=== PATIENT | female | born 1940 | race Caucasian/White ===

== ENCOUNTER → 2020-05-02 08:34 | Outpatient (BNVA) | payer MEDICARE, SELFPAY | PROVIDERS: Visit Provider Nurse Practitioner Family | DX: E03.9 Hypothyroidism, unspecified (principal); I10 Essential (primary) hypertension; E78.2 Mixed hyperlipidemia; E55.9 Vitamin D deficiency, unspecified; Z79.899 Other long term (current) drug therapy | CPT/HCPCS: 36415; 80053; 80061; 81003; 82306; 83036; 84443; 85025 ==

== ENCOUNTER 2021-06-01 09:28 | Outpatient (CLI) | payer MEDICARE, OTHER, SELFPAY ==
--- NOTE | 2021-06-01 | CT_ITS ---
WS: [id number] CT RIGHT HIP, NONCONTRAST. HISTORY: POSSIBLE FX SEEN ON XRAY Technique: All CT scans at [facility] use at least one of these dose optimization techniques: automated exposure control; mA and/or kV adjustment per patient size (includes targeted exams where dose is matched to clinical indication); or iterative reconstruction. DLP: 1495.21 mGy.cm COMPARISON: Radiograph RIGHT hip same day. Severe narrowing of the hip joint. No fracture is identified. Changes on the recent radiograph corres pond to osteophytic ridging around the femoral head and neck. No impacted healing or subacute fractur e. Degenerative air within the RIGHT SI joint. Atrophy of the muscle surrounding the RIGHT hip. No he matoma. CT/CT hip RT wo con* [id number] IMPRESSION: 1. No RIGHT hip fracture identified. 2. Severe degenerative joint disease at the RIGHT hip.
--- NOTE | 2021-06-01 09:51 | XR_ITS ---
WS: [id number] Exam: XR lumbar spine 2-3V* [id number] Date/Time of Exam: 06/01/2021 10:11 AM Reason For Exam: LOW BACK PAIN No acute fracture or dislocation. There is spondylosis. Degenerative vacuum disks are noted at the L1 -2, L2-3 and L3-4. Levoscoliosis noted. Facet DJD at all levels. Exaggerated lumbosacral angle. XR/XR lumbar spine 2-3V* [id number] IMPRESSION: 1. No fracture or dislocation. 2. Moderately advanced degenerative changes and levoscoliosis.
--- NOTE | 2021-06-01 09:51 | XR_ITS ---
WS: [id number] Exam: XR knee RT 1-2V [id number] Date/Time of Exam: 06/01/2021 10:11 AM Reason For Exam: RIGHT KNEE PAIN No acute fracture or dislocation. Mild degenerative change of the lateral joint compartment. Articula r cartilage calcification in the medial lateral joint compartments. There may be loose joint bodies i n the lateral compartment. No joint effusion. XR/XR knee RT 1-2V [id number] IMPRESSION: 1. Mild degenerative change and chondrocalcinosis. There may be loose joint bod ies present. 2. No fracture or joint effusion.
--- NOTE | 2021-06-01 09:54 | XR_ITS ---
WS: [id number] Exam: XR hip RT 2-3V wo/w pel* [id number] Date/Time of Exam: 06/01/2021 10:11 AM Reason For Exam: RIGHT HIP PAIN No acute fracture or dislocation. Advanced degenerative change with [id number] articulation. Subcor tical cyst formation in the femoral head. Linear soft tissue calcifications along the proximal femur. XR/XR hip RT 2-3V wo/w pel* [id number] IMPRESSION: 1. Advanced degenerative changes with [id number] articulation. 2. No fracture or dislocation.
--- NOTE | 2021-06-01 09:54 | XR_ITS ---
WS: [id number] Exam: XR forearm RT 2V [id number] Date/Time of Exam: 06/01/2021 10:11 AM Reason For Exam: RIGHT ARM PAIN, FALL Findings: There are no fractures, soft tissue swelling, or calcifications of the forearm. There is no irregula rity of the bony architecture. The bony elements lie in good position. XR/XR forearm RT 2V [id number] IMPRESSION: Negative forearm.
== END 2021-06-01 09:29 | disposition home or self-care (01) ==
LOC: RAD 09:43
PROVIDERS: PCP Nurse Practitioner Family; Visit Provider Nurse Practitioner Family
DX: M54.5 Low back pain (principal); W19.XXXA Unspecified fall, initial encounter; M11.261 Other chondrocalcinosis, right knee
CPT/HCPCS: 72100; 73090; 73502; 73560; 73700

== ENCOUNTER 2021-06-27 09:17 | Emergency (ER) | payer MEDICARE, OTHER, SELFPAY ==
[2021-06-27 09:25] VITALS: BP 151/87; PULSE 99; RESP 18; TEMP 36.6; O2SAT 97; BMI 30.4
--- NOTE | 2021-06-27 09:38 | ED_ITS ---
HPI - Extremity Problem General: Chief complaint: Extremity Problem,Nontraumatic Stated complaint: BLE PAIN/SWELLING:FELL 1 MO AGO,INC URINATION Time Seen by Provider: 06/27/21 09:20 History of Present Illness: HPI Narrative: 81-year-old female comes in [facility] of right hip and leg pain. She said increasing pain and edema of the right lower leg extending into the thigh. She has a history of polio and has really no significant flexion of the left leg she is [place] rate and transfer on her right leg but since the fall in mid-May she is not able to do so. She fell around the she had a hand laceration repaired at [place] at that time and then on the was seen at her primary care doctor's office had plain films and a CT of the right hip done all of which were read as negative. She is continued to have problems discomfort. MD Complaint: extremity pain Onset (ago): day(s) Pain Consistency: intermittent Location: right and lower extremity Quality: burning Radiation: distal Relieving factors: rest Exacerbating factors: weight bearing, walking and exertion Associated symptoms: Reports myalgias; Deny arthralgias, chest pain, fever(s), rash or short of breath Review of Systems Const: Denies: fever(s) ENMT: Denies: throat pain, ear or mastoid pain, nasal discharge or nasal congestion Card: Denies: chest pain Resp: Denies: dyspnea, productive cough or non-productive cough GI: Denies: abdominal pain, nausea, vomiting, hematemesis, coffee ground emesis, diarrhea, constipation, bloating, hematochezia or melena : Denies: flank pain, difficulty voiding, dysuria, urinary frequency or urinary urgency Skin/Breast: Denies: rash PFSH ED PFSH: Medical History Atrial fibrillation COPD (chronic obstructive pulmonary disease) DDD (degenerative disc disease) Hypothyroid Post-polio syndrome SVT (supraventricular tachycardia) Vitamin D deficiency Social History Smoking and tobacco status: never smoked Second hand smoke exposure: No Smoking risk assessment/counseling performed?: No Alcohol intake: never Desire information about alcohol rehabilitation?: No Counseling given: No Desire information about substance/drug rehabilitation?: No Counseling given: No Physical Exam Const: COMMON NORMALS: no acute distress GENERAL APPEARANCE: cooperative and comfortable ORIENTATION/CONSCIOUSNESS: Yes awake, Yes oriented to person, Yes oriented to place and Yes oriented to time HENMT: COMMON NORMALS: normocephalic, atraumatic and hearing grossly normal bilaterally HEAD & SCALP: normocephalic and atraumatic Neck/C-Spine: COMMON NORMALS: no JVD Resp: COMMON NORMALS: normal respiratory effort, No retractions, No use of accessory muscles and clear to auscultation bilaterally AUSCULTATION: clear to auscultation bilaterally Cardio: COMMON NORMALS: no JVD, regular rate, regular rhythm and No murmurs present (Cardio) RATE: regular rate RHYTHM: regular rhythm GI: COMMON NORMALS: Soft to palpation and No hepatosplenomegaly present AUSCULTATION: Yes normoactive bowel sounds PALPATION: Yes Soft to palpation, No Tenderness to palpation present (GI), No Guarding due to palpation present (GI) and Yes No hepatosplenomegaly present Extremity: COMMON NORMALS: normal to inspection, capillary refill normal, no clubbing, cyanosis or edema, no calf tenderness and no pedal edema Neuro: SENSORIUM/ORIENTATION: Yes oriented to person, Yes oriented to place and Yes oriented to time Skin: COMMON NORMALS: no rashes or lesions noted GENERAL SKIN EXAM: no rashes or lesions noted Course Vital Signs: Vital signs: Vital Signs Temperature 97.9 F 06/27/21 09:25 Pulse Rate 80 06/27/21 12:26 Respiratory Rate 18 06/27/21 09:25 Blood Pressure 166/72 06/27/21 12:26 Pulse Oximetry 98 06/27/21 12:26 MDM - Extremity (Nontraumatic) MDM Narrative: Medical decision making narrative: Reviewed CT and labs with the patient. Patient has lumbar stenosis on the CT. She had discharge sometime back after I discussed with her she told me she had an appointment with a back surgeon next week. She not previously had any imaging. Based on the results of CT I recommended she get an MRI prior to being seen by the back surgeon. She did rather not drive [place] overnight get her set up for a MRI here and then see if we can get her in to see Dr. Brewer return if she has further problems with pain medications and steroids given until MRI completed. Lab Data: Labs: Lab Results 06/27/21 06/27/21 06/27/21 10:04 10:04 12:45 WBC 9.0 10^3/uL 10^3/ uL (4.0-10.0) RBC 4.65 10^6/uL 10^6 /uL (4.1-5.3) Hgb 14.6 g/dL g/dL (11.5-15.3) Hct 43.8 % % (37.0-47.0) MCV 94.2 fl fl (81-99) MCH 31.4 pg pg (28.0-34.0) MCHC 33.3 g/dL g/dL (30.0-36.0) RDW 14.0 % % (12.1-15.1) Plt Count 295 10^3/cmm 10^3 /cmm (130-400) MPV 10.1 fL fL (7.4-10.4) Neut % (Auto) 67.1 % % Lymph % (Auto) 23.1 % % [place] % (Auto) 8.5 % % Eos % (Auto) 0.4 % % Baso % (Auto) 0.7 % % Neut # (Auto) 6.04 10^3/uL 10^3 /uL (1.8-7.7) Lymph # (Auto) 2.1 10^3/uL 10^3/ uL (0.8-4.8) [place] # (Auto) 0.8 10^3/uL 10^3/ uL (0.2-0.9) Eos # (Auto) 0.0 10^3/uL 10^3/ uL (0.0-0.8) Baso # (Auto) 0.1 10^3/uL 10^3/ uL (0.0-0.1) Nucleated RBC % (a uto) 0 % % Nucleated RBCs # 0.0 /100WBC /100W BC Sodium 138 mmol/L mmol/L (136-145) Potassium 4.0 mmol/L mmol/L (3.5-5.1) Chloride 105 mmol/L mmol/L (98-107) Carbon Dioxide 21 mmol/L L mmol/ L (22-29) Anion Gap 16.0 (5-19) BUN 20 mg/dL mg/dL (8-23) Creatinine 0.7 mg/dL mg/dL (0.5-0.9) GFR Calculation Not Reportable Glucose 131 mg/dL H mg/dL (65-115) Calculated Osmolal ity 290 mOsm/kg mOsm/ kg (285-295) Calcium 9.4 mg/dL mg/dL (8.5-10.5) Urine Color Yellow (Yellow) Urine Appearance Sl hazy (CLEAR) Urine pH 5 (5-7) Ur Specific Gravit y 1.020 (1.005-1.030) Urine Protein Neg (Negative) Urine Glucose (UA) Norm (Normal) Urine Ketones Negative (Negative) Urine Blood Neg (Negative) Urine Nitrate Negative (Negative) Urine Bilirubin Neg (Negative) Urine Urobilinogen Norm mg/dL mg/dL (Negative) Ur Leukocyte [place] ase Negative (Negative) Urine RBC 0-4 /hpf H /hpf (0-2) Urine WBC 0-4 /hpf H /hpf (0-5) Ur Squamous Epith Cells 5-10 /hpf H /hpf (0-5) Amorphous Sediment Not Reportable Urine Bacteria 1+ /hpf H /hpf (NONE) Hyaline Casts 0-4 /lpf H /lpf Urine Mucus 1+ /hpf /hpf Discharge Plan Discharge Patient Disposition: Home Clinical Impression: Lumbar stenosis with neurogenic claudication Condition: Stable Prescriptions: New hydrocodone-acetaminophen 5-325 mg tablet 1 tab PO Q6H PRN (Reason: pain) Qty: 15 RF: 0 Medrol (Theo) 4 mg tablets,dose pack See Rx Instructions .ROUTE .COMPLEX Qty: 21 RF: 0 No Action amiodarone 200 mg tablet 200 mg PO DAILY RF: 0 alprazolam 0.25 mg tablet 0.25 mg PO BID PRN (Reason: anxiety) 15 Days Qty: 30 RF: 0 amlodipine [Norvasc] 5 mg tablet 10 mg PO DAILY 90 Days Qty: 120 RF: 2 cholecalciferol (vitamin D3) 1,250 mcg (50,000 unit) capsule 50,000 unit PO .WEEKLY Qty: 4 RF: 2 levothyroxine 50 mcg tablet 50 mcg PO DAILY Qty: 30 RF: 2 apixaban 5 mg tablet 5 mg PO BID 90 Days Qty: 180 RF: 0 Discharge Orders: Discharge ED (Routine); Ordered 06/27/21 Ordered By: Kimani Bueno Referrals: Ernestina Nicholson NP [Primary Care Provider] - Discharge Diet: Usual diet Discharge Activity: Resume usual activity Patient Instructions: Opioid Safety Activity Restrictions/Additional Instructions: Follow-up with your primary care doctor within the next week for evaluation of your back pain. You may require advanced imaging such as an MRI. Coding Level of Care Code ED Service Technician for Andriy Raymundo
--- NOTE | 2021-06-27 09:45 | USR_ITS ---
PROCEDURE INFORMATION: Exam: US Duplex Lower Extremity Veins, Bilateral Exam date and time: 06/27/2021 9:45 AM Age: 81 years old Clinical indication: Edema, localized; Lower extremity, bilateral; Additional info: Pain swelling lower extremities TECHNIQUE: Imaging protocol: Real-time duplex ultrasound of the extremities with 2-D martin scale, color Doppler flow and spectral waveform analysis with image documentation. Complete exam focused on the bilateral lower extremity veins. COMPARISON: CT hip RT wo con* [id number] 06/01/2021 11:55 AM FINDINGS: Right deep veins: Unremarkable. The common femoral, femoral, proximal profunda femoral and popliteal veins are patent without thrombus. Normal Doppler waveforms. Normal compressibility and/or augmentation response. Right superficial veins: Saphenofemoral junction is patent without thrombus. Left deep veins: Unremarkable. The common femoral, femoral, proximal profunda femoral and popliteal veins are patent without thrombus. Normal Doppler waveforms. Normal compressibility and/or augmentation response. Left superficial veins: Saphenofemoral junction is patent without thrombus. Soft tissues: Unremarkable. US/CV venous duplex [facility] [id number] IMPRESSION: No evidence of deep vein thrombosis. Radiation Dose CTDIVOL = (mGy): DLP = (mGy-cm)
--- NOTE | 2021-06-27 09:54 | CTR_ITS ---
PROCEDURE INFORMATION: Exam: CT Lumbar Spine Without Contrast Exam date and time: 06/27/2021 9:54 AM Age: 81 years old Clinical indication: Injury or trauma; Fall; Blunt trauma (contusions or hematomas); Additional info: R leg radicular pain TECHNIQUE: Imaging protocol: Computed tomography images of the lumbar spine without contrast. Radiation optimization: All CT scans at this facility use at least one of these dose optimization techniques: automated exposure control; mA and/or kV adjustment per patient size (includes targeted exams where dose is matched to clinical indication); or iterative reconstruction. COMPARISON: CR XR lumbar spine 2-3V* [id number] 06/01/2021 10:01 AM RADIATION DOSE METRICS: Total DLP (mGy-cm): 2190.14 FINDINGS: Vertebrae: Minimal lower thoracic dextroscoliosis and lumbar levoscoliosis. There are degenerative changes throughout the visualized spine including marginal osteophyte formations, endplate degenerative changes, and facet arthropathy. Multilevel vacuum disc phenomenon and disc space narrowing. L1-L2: No significant disc protrusion. No severe spinal canal stenosis. No significant neural foraminal narrowing. L2-L3: There is a disc bulge with a possible superimposed right paracentral protrusion without significant canal or neural foramina stenosis. L3-L4: Minimal disc bulge and posterior osteophytes. No significant canal or neural foramina stenosis. There is a slight grade 1 degenerative retrolisthesis of L3 on L4. L4-L5: There is a disc bulge with possible superimposed right lateral protrusion, ligamentum flavum hypertrophy and facet arthropathy which contributes to moderate to severe canal narrowing. There is moderate narrowing of the right neural foramen. L5-S1: No significant disc protrusion. No severe spinal canal stenosis. No significant neural foraminal narrowing. Soft tissues: Unremarkable. CT/CT lumbar spine wo con* [id number] IMPRESSION: Multilevel, multifactorial degenerative changes are present in the lumbar spine as described above. The changes are most severe at the L4-L5 level where a disc bulge with possible superimposed right lateral protrusion, ligamentum flavum hypertrophy, and facet arthropathy contribute to moderate to severe canal narrowing and moderate narrowing of the right neural foramen. Radiation Dose CTDIVOL = (mGy): DLP = 2190.14 (mGy-cm)
[2021-06-27 10:10] LABS: Basophils # 0.1 10^3/uL (0.0-0.1); Basophils % 0.7 %; Eosinophils % 0.4 %; Hematocrit 43.8 % (37.0-47.0); Hemoglobin 14.6 g/dL (11.5-15.3); Lymphocytes # 2.1 10^3/uL (0.8-4.8); Lymphocytes % 23.1 %; Mean Corpuscular HGB Conc 33.3 g/dL (30.0-36.0); Mean Corpuscular Hemoglobin 31.4 pg (28.0-34.0); Mean Corpuscular Volume 94.2 fl (81-99); Mean Platelet Volume 10.1 fL (7.4-10.4); Monocytes # 0.8 10^3/uL (0.2-0.9); Monocytes % 8.5 %; Neutrophils # 6.04 10^3/uL (1.8-7.7); Neutrophils % 67.1 %; Nucleated Red Blood Cells % 0 %; Platelet Count 295 10^3/cmm (130-400); Red Blood Count 4.65 10^6/uL (4.1-5.3)
[2021-06-27 10:44] LABS: Blood Urea Nitrogen 20 mg/dL (8-23); Calcium 9.4 mg/dL (8.5-10.5); Carbon Dioxide 21 mmol/L (22-29); Chloride 105 mmol/L (98-107); Creatinine Clr Calc Pharmacy 62.8258; Glucose 131 mg/dL (65-115); Osmolality Calculated 290 mOsm/kg (285-295); Sodium 138 mmol/L (136-145)
[2021-06-27] MEDS: orphenadrine 30 mg/mL Inj 2 mL 60 MG IVP (12:24)
[2021-06-27] MEDS: dexamethasone 10 mg/mL INJ IVP (12:24)
[2021-06-27 12:26] VITALS: BP 166/72; PULSE 80; O2SAT 98
[2021-06-27 12:56] LABS: Add Urine Microscopic? YES; Bilirubin Urine Neg (Negative); Blood Urine Neg (Negative); Glucose Urine UA Norm (Normal); Ketones Urine Negative (Negative); Leukocyte Esterase Urine Negative (Negative); Nitrate Urine Negative (Negative); Protein Urine Neg (Negative); Urine Appearance SL Hazy (CLEAR); Urine Color Yellow (Yellow); Urobilinogen Urine Norm (Negative); pH Urine 5 (5-7)
[2021-06-27 13:04] LABS: Bacteria Urine 1+ /hpf; Mucus Urine 1+ /hpf; RBC Urine 0-4 /hpf (0-2); WBC Urine 0-4 /hpf (0-5)
[2021-06-27 13:05] LABS: Add Urine Culture? No; Hyaline Casts Urine 0-4 /lpf
[2021-06-27] MEDS: HYDROcodone-acetaminophen 5-325 mg Tablet 1 TAB PO (13:28)
--- NOTE | 2021-07-01 14:01 | DCPLANNER ---
lunch counter manager had message to schedule a follow up appointment for patient with ortho and an outpatient MRI. lunch counter manager faxed signed MRI order to centralized scheduling. After the MRI is scheduled, manager of case management will call the ortho clinic, and make referral to the ortho.
--- NOTE | 2021-07-15 13:48 | DCPLANNER ---
Patient has an outpatient MRI scheduled for Wednesday, July 21, 2021 at 1:00, centralized scheduling will call patient with appointment information. Patient has an appointment scheduled for Wednesday, August 04, 2021 at 1:[address] Brewer. Clinic will call patient with appointment information.
--- NOTE | 2021-08-28 09:11 | DCPLANNER ---
Patient had an outpatient MRI scheduled for 07.21.21 - patient did attend appointment. Patient also had an appointment scheduled with ortho - appt was cancelled
== END 2021-06-27 13:36 | disposition home or self-care (01) ==
PROVIDERS: Emergency Provider Family Medicine; PCP Nurse Practitioner Family
DX: M48.062 Spinal stenosis, lumbar region with neurogenic claudication (principal); J44.9 Chronic obstructive pulmonary disease, unspecified; R60.0 Localized edema; M79.604 Pain in right leg
CPT/HCPCS: 72131; 80048; 81001; 85025; 93970; 96374; 96375; 99283; J1100; J2360

== ENCOUNTER 2022-09-06 10:51 | Emergency (ER) | payer MEDICARE, OTHER, SELFPAY ==
--- NOTE | 2022-09-06 11:05 | XRR_ITS ---
PROCEDURE INFORMATION: Exam: XR Chest Exam date and time: 09/06/2022 11:09 AM Age: 82 years old Clinical indication: Cough TECHNIQUE: Imaging protocol: Radiologic exam of the chest. Views: 1 view. COMPARISON: No relevant prior studies available. FINDINGS: Lungs: Unremarkable. No consolidation. Pleural spaces: Unremarkable. No pleural effusion. No pneumothorax. Heart/Mediastinum: Unremarkable. No cardiomegaly. Bones/joints: The left AC joint is widened measuring 28 mm. There is foreshortening of the left clavicle. A metallic plate is seen in the humeral head. Remodeling is present in the glenoid. The right shoulder shows osteoarthritis and narrowing of the acromial humeral space. There is a loop recorder in place in the left chest XR/XR chest 1V portable [id number] IMPRESSION: 1. No acute findings. 2. Postsurgical findings is seen in the left shoulder. 3. Osteoarthritis right shoulder 4. Loop recorder left chest
--- NOTE | 2022-09-06 11:06 | W.ED.URI ---
HPI - URI/Sore Throat General: Chief Complaint: Weakness Stated Complaint: Flu Symptoms Time Seen by Provider: 09/06/22 11:01 History of Present Illness: 82-year-old female presents with generalized flulike symptoms. She reports everyone in the house has had similar symptoms. Been gone for about 3 days. She has a mild cough that is improved over the last day or 2. Some generalized body aches, chills, weakness. Patient has a history of polio when she is 10 years old and has limited mobility and uses a motorized wheelchair due to weakness in her bilateral legs. Patient comes in today because she just wants to be checked out. Associated symptoms: Reports chills and diarrhea; Deny abdominal pain, chest pain, ear or mastoid pain, nausea or vomiting Review of Systems Const: Reports: chills, body aches, fatigue and malaise Eyes: Denies: change in vision or eye discomfort ENMT: Denies: throat pain or ear or mastoid pain Card: Denies: chest pain or palpitations Resp: Reports: non-productive cough; Denies: dyspnea GI: Reports: diarrhea; Denies: abdominal pain, nausea or vomiting : Denies: difficulty voiding or dysuria Musc: Reports: other (Please see HPI) Skin/Breast: Denies: rash Neuro: Reports: other (Please see HPI) PFSH ED PFSH: Medical History Atrial fibrillation COPD (chronic obstructive pulmonary disease) DDD (degenerative disc disease) Hypothyroid Post-polio syndrome SVT (supraventricular tachycardia) Vitamin D deficiency Social History Smoking and tobacco status: never smoked Second hand smoke exposure: No Smoking risk assessment/counseling performed?: No Alcohol intake: never Desire information about alcohol rehabilitation?: No Counseling given: No Desire information about substance/drug rehabilitation?: No Counseling given: No Physical Exam Const: COMMON NORMALS: no acute distress, patient oriented x3 and alert ORIENTATION/CONSCIOUSNESS: Yes oriented to person, Yes oriented to place and Yes oriented to time HENMT: MOUTH: moist mucous membranes abnormal (Mild dry) Eye: COMMON NORMALS: Equal, round and reactive pupils present and EOMs intact bilaterally PUPIL: Yes Equal, round and reactive pupils present Neck/C-Spine: COMMON NORMALS: full ROM and supple Resp: COMMON NORMALS: normal respiratory effort, No retractions, No use of accessory muscles and clear to auscultation bilaterally AUSCULTATION: clear to auscultation bilaterally Cardio: COMMON NORMALS: regular rate and regular rhythm RATE: regular rate RHYTHM: regular rhythm GI: COMMON NORMALS: Soft to palpation and non-tender PALPATION: Yes Soft to palpation Neuro: COMMON NORMALS: patient oriented x3 SENSORIUM/ORIENTATION: Yes alert, Yes oriented to person, Yes oriented to place and Yes oriented to time SPEECH: speech normal Psych: COMMON NORMALS: Normal thought process present, cooperative and speech normal SPEECH: Yes normal speech THOUGHT PROCESS: Normal thought process present Skin: COMMON NORMALS: no rashes or lesions noted GENERAL SKIN EXAM: no rashes or lesions noted Course Vital Signs: Vital signs: Vital Signs Temperature 101.0 F H 09/06/22 11:07 Pulse Rate 73 09/06/22 15:41 Respiratory Rate 16 09/06/22 15:41 Blood Pressure 133/62 09/06/22 15:41 Pulse Oximetry 94 09/06/22 15:41 Oxygen Delivery Me thod 09/06/22 14:25 MDM - URI/Sore Throat Medical Decision Making Reviewed patient's x-rays and labs with her. She is positive for influenza. Otherwise no significant acute findings on her labs or chest x-ray. She is feeling better following IV fluids. Even though she is near the window for Tamiflu because of her history of polio and other chronic medical conditions I will prescribe her Tamiflu. I also recommend she try elderberry and drink plenty of fluids. She denies any nausea so I will not prescribe her any Zofran at this time. Patient was requesting a prescription for Joey lift however I recommended she follow-up with her primary care provider as that would be the provider that can order that for her. She is stable and discharged home Lab Data 09/06/22 11:45 09/06/22 11:45 Radiology Impressions Chest X-Ray 09/06/22 11:05 IMPRESSION: 1. No acute findings. 2. Postsurgical findings is seen in the left shoulder. 3. Osteoarthritis right shoulder 4. Loop recorder left chest Laboratory Results WBC 7.8 10^3/uL (4.0-10.0) 09/06/22 11:45 RBC 4.58 10^6/uL (4.1-5.3) 09/06/22 11:45 Hgb 14.3 g/dL (11.5-15.3) 09/06/22 11:45 Hct 43.0 % (37.0-47.0) 09/06/22 11:45 MCV 93.9 fl (81-99) 09/06/22 11:45 MCH 31.2 pg (28.0-34.0) 09/06/22 11:45 MCHC 33.3 g/dL (30.0-36.0) 09/06/22 11:45 RDW 14.0 % (12.1-15.1) 09/06/22 11:45 Plt Count 219 10^3/cmm (130-400) 09/06/22 11:45 MPV 10.3 fL (7.4-10.4) 09/06/22 11:45 Neut % (Auto) 85.6 % 09/06/22 11:45 Lymph % (Auto) 4.0 % 09/06/22 11:45 [place] % (Auto) 9.6 % 09/06/22 11:45 Eos % (Auto) 0.0 % 09/06/22 11:45 Baso % (Auto) 0.4 % 09/06/22 11:45 Neut # (Auto) 6.66 10^3/uL (1.8-7.7) 09/06/22 11:45 Lymph # (Auto) 0.3 10^3/uL (0.8-4.8) L 09/06/22 11:45 [place] # (Auto) 0.8 10^3/uL (0.2-0.9) 09/06/22 11:45 Eos # (Auto) 0.0 10^3/uL (0.0-0.8) 09/06/22 11:45 Baso # (Auto) 0.0 10^3/uL (0.0-0.1) 09/06/22 11:45 Nucleated RBC % (auto) 0 % 09/06/22 11:45 Nucleated RBCs # 0.0 /100WBC 09/06/22 11:45 Sodium 134 mmol/L (136-145) L 09/06/22 11:45 Potassium 3.7 mmol/L (3.5-5.1) 09/06/22 11:45 Chloride 100 mmol/L (98-107) 09/06/22 11:45 Carbon Dioxide 21 mmol/L (22-29) L 09/06/22 11:45 Anion Gap 16.7 (5-19) 09/06/22 11:45 BUN 16 mg/dL (8-23) 09/06/22 11:45 Creatinine 0.7 mg/dL (0.5-0.9) 09/06/22 11:45 GFR Calculation Not Reportable 09/06/22 11:45 Glucose 102 mg/dL (65-115) 09/06/22 11:45 Calculated Osmolality 279 mOsm/kg (285-295) L 09/06/22 11:45 Calcium 8.9 mg/dL (8.5-10.5) 09/06/22 11:45 Magnesium 2.1 mg/dL (1.7-2.3) 09/06/22 11:45 Total Bilirubin 0.5 mg/dL (0.15-1.2) 09/06/22 11:45 AST 42 U/L (0-32) H 09/06/22 11:45 ALT 45 U/L (0-33) H 09/06/22 11:45 Alkaline Phosphatase 62 U/L (35-105) 09/06/22 11:45 Total Protein 7.0 g/dL (6.6-8.7) 09/06/22 11:45 Albumin 4.1 g/dL (3.5-5.2) 09/06/22 11:45 Globulin 2.9 g/dL (1.3-4.6) 09/06/22 11:45 Influenza Type A Ag positive (Negative) H 09/06/22 14:17 Influenza Type B Ag negative (Negative) 09/06/22 14:17 SARS-CoV-2 Ag (Rapid) negative (Negative) 09/06/22 14:17 Discharge Plan Discharge Patient Disposition: Home Clinical Impression: Influenza A Condition: Stable Prescriptions: New Tamiflu 75 mg capsule 75 mg PO BID 5 Days Qty: 10 0RF No Action amlodipine [Norvasc] 5 mg tablet 10 mg PO DAILY 90 Days Qty: 120 2RF cholecalciferol (vitamin D3) 1,250 mcg (50,000 unit) capsule 50,000 unit PO .WEEKLY Qty: 4 2RF levothyroxine 50 mcg tablet 50 mcg PO DAILY Qty: 30 2RF apixaban 5 mg tablet 5 mg PO BID 90 Days Qty: 180 0RF Discharge Orders: Discharge ED (Routine); Ordered 09/06/22 Ordered By: Axel Alexander Referrals: Ernestina Nicholson, POLITICAL CONSULTANT [Primary Care Provider] - Discharge Diet: Usual diet Discharge Activity: Increase activity as tolerated Patient Instructions: Influenza (ED), Opioid Safety, Pain Management Activity Restrictions/Additional Instructions: Drink plenty of fluids, follow-up with your primary care provider as needed. You can try elderberry [id number] medication as directed on package. Coding Level of Care Code ED Money Examiner for Andriy Fwd Exam Comprehensive
[2022-09-06 11:07] VITALS: BP 147/86; PULSE 106; RESP 14; TEMP 38.3; O2SAT 91; BMI 33.9
--- NOTE | 2022-09-06 11:24 | PC.PHAR ---
PTS SON STS PT HAS BEEN TAKING HIS PRESCRIPTION AMOXICILLIN 500 MG BID FOR THE LAST COUPLE DAYS - PT DENIES BEING ON ANTIBIOTICS
[2022-09-06 11:48] VITALS: BP 151/89; PULSE 125; RESP 16; O2SAT 97
[2022-09-06 11:53] LABS: Basophils % 0.4 %; Hemoglobin 14.3 g/dL (11.5-15.3); Lymphocytes # 0.3 10^3/uL (0.8-4.8); Mean Corpuscular HGB Conc 33.3 g/dL (30.0-36.0); Mean Corpuscular Hemoglobin 31.2 pg (28.0-34.0); Mean Corpuscular Volume 93.9 fl (81-99); Mean Platelet Volume 10.3 fL (7.4-10.4); Monocytes # 0.8 10^3/uL (0.2-0.9); Monocytes % 9.6 %; Neutrophils # 6.66 10^3/uL (1.8-7.7); Neutrophils % 85.6 %; Nucleated Red Blood Cells % 0 %; Platelet Count 219 10^3/cmm (130-400); Red Blood Count 4.58 10^6/uL (4.1-5.3); White Blood Count 7.8 10^3/uL (4.0-10.0)
[2022-09-06] MEDS: sodium chloride 0.9% 1,000 ML 999 ML IV (11:53)
[2022-09-06 12:14] LABS: Alanine Aminotransferase 45 U/L (0-33); Albumin Level 4.1 g/dL (3.5-5.2); Alkaline Phosphatase 62 U/L (35-105); Anion Gap 16.7 (5-19); Aspartate Amino Transferase 42 U/L (0-32); Blood Urea Nitrogen 16 mg/dL (8-23); Calcium 8.9 mg/dL (8.5-10.5); Carbon Dioxide 21 mmol/L (22-29); Chloride 100 mmol/L (98-107); Globulin 2.9 g/dL (1.3-4.6); Glucose 102 mg/dL (65-115); Magnesium 2.1 mg/dL (1.7-2.3); Osmolality Calculated 279 mOsm/kg (285-295); Potassium 3.7 mmol/L (3.5-5.1); Sodium 134 mmol/L (136-145); Total Bilirubin 0.5 mg/dL (0.15-1.2)
[2022-09-06 13:18] VITALS: BP 160/70; PULSE 72; RESP 16; O2SAT 95
[2022-09-06] MEDS: ibuprofen 200 mg Tablet 400 MG PO (13:38)
[2022-09-06 14:25] VITALS: BP 133/62; PULSE 73; RESP 16; O2SAT 94
[2022-09-06 14:50] LABS: Influenza A by IFA positive (Negative); Influenza B by IFA negative (Negative); SARS Covid-2 Antigen negative (Negative)
[2022-09-06 15:41] VITALS: BP 133/62; PULSE 73; RESP 16; O2SAT 94
== END 2022-09-06 15:44 | disposition home or self-care (01) ==
PROVIDERS: Emergency Provider Student in an Organized Health Care Education/Training Program; PCP Nurse Practitioner Family
DX: J10.1 Influenza due to other identified influenza virus with other respiratory manifestations (principal); Z20.822 Contact with and (suspected) exposure to COVID-19; J44.9 Chronic obstructive pulmonary disease, unspecified
CPT/HCPCS: 71045; 80053; 83735; 85025; 87426; 87804; 96360; 99284; J7030

== ENCOUNTER 2023-04-09 18:31 | Emergency (ER) | payer MEDICARE, OTHER, SELFPAY ==
[2023-04-09 18:36] VITALS: BP 135/95; PULSE 120; RESP 18; TEMP 36.8; O2SAT 98; BMI 32.3
--- NOTE | 2023-04-09 18:45 | ED_ITS ---
HPI - Back Pain/Injury General: Chief Complaint: Back Pain/Injury Stated Complaint: LEFT HIP AND BACK PAIN Time Seen by Provider: 04/09/23 18:42 History of Present Illness: 83-year-old female comes in today with complaints of low back pain radiating to the left hip starting about 11:00 this afternoon. Patient also reports an episode of nausea vomiting x1 after eating lunch. Patient reports that the pain seems to have worsened throughout the day. Patient appears nontoxic. Patient does have a little benign tremor. Patient reports a history of atrial fib, history of degenerative disc disease, and hypothyroidism. 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 Patient usually uses a wheelchair for ADLs. Patient states that she normally uses acetaminophen at home with good relief of pain. Patient reports the pain has been worse today. Associated symptoms: Reports vomiting (Once); Deny fever(s) Review of Systems General: Reports: 10 or more systems reviewed and unremarkable except in HPI and below Const: Denies: fever(s) Card: Denies: chest pain Resp: Denies: dyspnea GI: Reports: vomiting (Once) Musc: Reports: back pain Skin/Breast: Denies: rash PFSH ED PFSH: Medical History Atrial fibrillation COPD (chronic obstructive pulmonary disease) DDD (degenerative disc disease) Hypothyroid Post-polio syndrome SVT (supraventricular tachycardia) Vitamin D deficiency Social History Smoking and tobacco status: never smoked Second hand smoke exposure: No Smoking risk assessment/counseling performed?: No Alcohol intake: never Desire information about alcohol rehabilitation?: No Counseling given: No Substance/Drug Use: never Desire information about substance/drug rehabilitation?: No Counseling given: No Physical Exam Const: COMMON NORMALS: alert HENMT: COMMON NORMALS: normocephalic HEAD & SCALP: normocephalic THROAT: posterior oropharynx normal Neck/C-Spine: COMMON NORMALS: full ROM Resp: COMMON NORMALS: normal respiratory effort and clear to auscultation bilaterally AUSCULTATION: clear to auscultation bilaterally Cardio: COMMON NORMALS: regular rate and regular rhythm RATE: regular rate RHYTHM: regular rhythm GI: COMMON NORMALS: Soft to palpation PALPATION: Yes Soft to palpation and Yes Tenderness to palpation present (GI) Details: LLQ : COMMON NORMALS: Yes no CVA tenderness BLADDER/KIDNEY EXAM: Yes no CVA tenderness Back/Pelvis: COMMON NORMALS: no CVA tenderness LUMBAR SPINE/LOWER BACK: Yes paraspinal muscle tenderness Lumbar paraspinal muscle tenderness: left Extremity: COMMON NORMALS: capillary refill normal NARRATIVE EXTREMITY EXAM: Bilateral foot drop Neuro: SENSORIUM/ORIENTATION: Yes alert Skin: COMMON NORMALS: turgor normal GENERAL SKIN EXAM: turgor normal Course Vital Signs: Vital signs: Vital Signs Temperature 98.3 F 04/09/23 18:36 Pulse Rate 68 04/09/23 20:30 Respiratory Rate 19 H 04/09/23 19:00 Blood Pressure 175/72 04/09/23 21:18 Pulse Oximetry 97 04/09/23 20:30 Oxygen Delivery Me thod Room Air 04/09/23 20:30 MDM - Back Pain/Injury Medical Decision Making 83-year-old female comes in today with complaints of low back pain. Patient reports the pain started about 11:00 this afternoon. Patient appears nontoxic. Patient did report an episode of nausea and vomiting x1. Patient has some left lower quadrant abdominal pain. Vital signs are normal. Patient does have a irregular heart rate ranging in the 90s to low 100s. Differential diagnosis includes not limited to diverticulitis, renal calculi, intervertebral disc disease, facet arthritis, lumbar radiculopathy, constipation. Laboratory values were unremarkable except for some mild leukocytosis at 10,000. CT of the abdomen and pelvis noted some mild dilation of the gallbladder and common bile duct without evidence of obstructing stone or inflammation. Radiologist did suggest maybe an MRCP, however laboratory values at this time do not showing elevation in liver enzymes or bilirubin suggesting obstruction. No signs of diverticulitis was noted. Believe the pain is probably secondary to patient's chronic back degenerative disc disease. Patient was given a dose of orp henadrine and dexamethasone by IV and did report improvement in pain to the point it was dull. Patient did agree to tramadol for further pain relief and was discharged home with a tablet and a prescription. Discussed the abnormality of the gallbladder on the CT scan and recommendations for follow-up and monitoring. Patient reported understanding of plan and need for follow-up or return to the ER for worsening symptoms such as high fever, uncontrolled nausea and vomiting, or uncontrolled pain. Labs 04/09/23 19:38 04/09/23 19:38 Radiology Impressions Abdomen/Pelvis CT 04/09/23 18:52 IMPRESSION: 1. No acute intra-abdominal or intrapelvic pathology. 2. Mild dilatation of the CBD and gallbladder without evidence of obstructing stone or inflammatory changes. Further evaluation with abdomen ultrasound and/or MRCP should be considered in the adequate clinical setting. Laboratory Results WBC 10.1 10^3/uL (4.0-10.0) H 04/09/23 19:38 RBC 4.82 10^6/uL (4.1-5.3) 04/09/23 19:38 Hgb 15.0 g/dL (11.5-15.3) 04/09/23 19:38 Hct 44.5 % (37.0-47.0) 04/09/23 19:38 MCV 92.3 fl (81-99) 04/09/23 19:38 MCH 31.1 pg (28.0-34.0) 04/09/23 19:38 MCHC 33.7 g/dL (30.0-36.0) 04/09/23 19:38 RDW 13.2 % (12.1-15.1) 04/09/23 19:38 Plt Count 294 10^3/cmm (130-400) 04/09/23 19:38 MPV 9.4 fL (7.4-10.4) 04/09/23 19:38 Neut % (Auto) 82.8 % 04/09/23 19:38 Lymph % (Auto) 12.0 % 04/09/23 19:38 [place] % (Auto) 4.3 % 04/09/23 19:38 Eos % (Auto) 0.1 % 04/09/23 19:38 Baso % (Auto) 0.5 % 04/09/23 19:38 Neut # (Auto) 8.36 10^3/uL (1.8-7.7) H 04/09/23 19:38 Lymph # (Auto) 1.2 10^3/uL (0.8-4.8) 04/09/23 19:38 [place] # (Auto) 0.4 10^3/uL (0.2-0.9) 04/09/23 19:38 Eos # (Auto) 0.0 10^3/uL (0.0-0.8) 04/09/23 19:38 Baso # (Auto) 0.1 10^3/uL (0.0-0.1) 04/09/23 19:38 Nucleated RBC % (auto) 0 % 04/09/23 19:38 Nucleated RBCs # 0.0 /100WBC 04/09/23 19:38 Sodium 139 mmol/L (136-145) 04/09/23 19:38 Potassium 4.1 mmol/L (3.5-5.1) 04/09/23 19:38 Chloride 102 mmol/L (98-107) 04/09/23 19:38 Carbon Dioxide 21 mmol/L (22-29) L 04/09/23 19:38 Anion Gap 20.1 (5-19) H 04/09/23 19:38 BUN 19 mg/dL (8-23) 04/09/23 19:38 Creatinine 0.6 mg/dL (0.5-0.9) 04/09/23 19:38 GFR Calculation Not Reportable 04/09/23 19:38 Glucose 141 mg/dL (65-115) H 04/09/23 19:38 Calculated Osmolality 293 mOsm/kg (285-295) 04/09/23 19:38 Calcium 9.1 mg/dL (8.5-10.5) 04/09/23 19:38 Total Bilirubin 0.4 mg/dL (0.15-1.2) 04/09/23 19:38 AST 18 U/L (0-32) 04/09/23 19:38 ALT 15 U/L (0-33) 04/09/23 19:38 Alkaline Phosphatase 59 U/L (35-105) 04/09/23 19:38 Total Protein 7.2 g/dL (6.6-8.7) 04/09/23 19:38 Albumin 4.2 g/dL (3.5-5.2) 04/09/23 19:38 Globulin 3.0 g/dL (1.3-4.6) 04/09/23 19:38 Lipase 39 U/L (13-60) 04/09/23 19:38 Discharge Plan Discharge Patient Disposition: Home Clinical Impression: Lumbar radiculopathy Condition: Stable Prescriptions: New tramadol 50 mg tablet 50 mg PO Q8H PRN (Reason: pain (scale score 7-10)) Qty: 12 0RF No Action amlodipine [Norvasc] 5 mg tablet 10 mg PO DAILY 90 Days Qty: 120 2RF cholecalciferol (vitamin D3) 1,250 mcg (50,000 unit) capsule 50,000 unit PO .WEEKLY Qty: 4 2RF levothyroxine 50 mcg tablet 50 mcg PO DAILY Qty: 30 2RF apixaban 5 mg tablet 5 mg PO BID 90 Days Qty: 180 0RF Discharge Orders: Discharge ED (Routine); Ordered 04/09/23 Ordered By: Ricky Gomez Referrals: Ernestina Nicholson NP [Primary Care Provider] - Discharge Diet: Usual diet Discharge Activity: Increase activity as tolerated Patient Instructions: Opioid Safety, Pain Management Activity Restrictions/Additional Instructions: Follow-up with primary care in 2 to 3 days for recheck. Return to emergency department for worsening symptoms such as high fever, vomiting, blood in vomit or stool, or new concerns. Coding Level of Care Code ED Business Employment Specialist for Andriy Raymundo
--- NOTE | 2023-04-09 18:52 | CTR_ITS ---
PROCEDURE INFORMATION: Exam: CT Abdomen And Pelvis With Contrast Exam date and time: 04/09/2023 8:15 PM Age: 83 years old Clinical indication: Nausea and vomiting; Prior surgery; Surgery date: 6+ months; Surgery type: Bony fusion of left hip; Patient HX: N/v with low back pain. History of polio. ; Additional info: Nausea/vomit, low back pain TECHNIQUE: Imaging protocol: Computed tomography of the abdomen and pelvis with contrast. Radiation optimization: All CT scans at this facility use at least one of these dose optimization techniques: automated exposure control; mA and/or kV adjustment per patient size (includes targeted exams where dose is matched to clinical indication); or iterative reconstruction. Contrast material: OMNI 350; Contrast volume: 100 ml; Contrast route: INTRAVENOUS (IV); REPORTING DATA: Count of CT and Cardiac NM exams in prior 12 months: This patient has received 0 known CTs and 0 known cardiac nuclear medicine studies in the 12 months prior to the current study. COMPARISON: CR XR hip RT 2-3V wo/w pel* [id number] 06/01/2021 10:01 AM RADIATION DOSE METRICS: Total DLP (mGy-cm): 1406.6 FINDINGS: Liver: Normal. No mass. Gallbladder and bile ducts: The gallbladder is distended. No gallstone or inflammatory changes seen. There is mild extrahepatic biliary ductal dilatation with a CBD measuring up to 1.5 cm in diameter. No evidence of radiopaque stone to suggest choledocholithiasis. Pancreas: Normal. No ductal dilation. Spleen: Normal. No splenomegaly. Adrenal glands: Normal. No mass. Kidneys and ureters: Normal. No hydronephrosis. Stomach and bowel: There is diverticulosis without evidence of diverticulitis. Appendix: No evidence of appendicitis. Intraperitoneal space: Unremarkable. No free air. No significant fluid collection. Vasculature: Mild diffuse atherosclerotic disease is present. Lymph nodes: Unremarkable. No enlarged lymph nodes. Urinary bladder: Unremarkable as visualized. Reproductive: Unremarkable as visualized. Bones/joints: Mild S-shaped curvature of the spine and multilevel degenerative changes seen. Left hip fusion noted. There is severe degenerative changes of the right hip joint. Soft tissues: Unremarkable. CT/CT abdomen pelvis w con* [id number] IMPRESSION: 1. No acute intra-abdominal or intrapelvic pathology. 2. Mild dilatation of the CBD and gallbladder without evidence of obstructing stone or inflammatory changes. Further evaluation with abdomen ultrasound and/or MRCP should be considered in the adequate clinical setting.
[2023-04-09 19:00] VITALS: BP 162/91; PULSE 127; RESP 19; O2SAT 96
[2023-04-09 19:30] VITALS: BP 154/118; PULSE 119; O2SAT 97
[2023-04-09 19:48] LABS: Basophils # 0.1 10^3/uL (0.0-0.1); Basophils % 0.5 %; Eosinophils % 0.1 %; Hematocrit 44.5 % (37.0-47.0); Lymphocytes # 1.2 10^3/uL (0.8-4.8); Mean Corpuscular HGB Conc 33.7 g/dL (30.0-36.0); Mean Corpuscular Hemoglobin 31.1 pg (28.0-34.0); Mean Corpuscular Volume 92.3 fl (81-99); Mean Platelet Volume 9.4 fL (7.4-10.4); Monocytes # 0.4 10^3/uL (0.2-0.9); Monocytes % 4.3 %; Neutrophils # 8.36 10^3/uL (1.8-7.7); Neutrophils % 82.8 %; Nucleated Red Blood Cells % 0 %; Platelet Count 294 10^3/cmm (130-400); Red Blood Count 4.82 10^6/uL (4.1-5.3); Red Cell Distribution Width 13.2 % (12.1-15.1); White Blood Count 10.1 10^3/uL (4.0-10.0)
[2023-04-09] MEDS: orphenadrine 30 mg/mL Inj 2 mL 60 MG IVP (19:50)
[2023-04-09] MEDS: dexamethasone 4 mg/mL INJ 8 MG IVP (19:50)
[2023-04-09 20:00] VITALS: BP 167/67; PULSE 67; O2SAT 99
[2023-04-09 20:01] LABS: Alanine Aminotransferase 15 U/L (0-33); Albumin Level 4.2 g/dL (3.5-5.2); Alkaline Phosphatase 59 U/L (35-105); Anion Gap 20.1 (5-19); Aspartate Amino Transferase 18 U/L (0-32); Blood Urea Nitrogen 19 mg/dL (8-23); Calcium 9.1 mg/dL (8.5-10.5); Carbon Dioxide 21 mmol/L (22-29); Chloride 102 mmol/L (98-107); Creatinine Clr Calc Pharmacy 60.4508; Glucose 141 mg/dL (65-115); Lipase 39 U/L (13-60); Osmolality Calculated 293 mOsm/kg (285-295); Potassium 4.1 mmol/L (3.5-5.1); Sodium 139 mmol/L (136-145); Total Bilirubin 0.4 mg/dL (0.15-1.2); Total Protein 7.2 g/dL (6.6-8.7)
[2023-04-09] MEDS: iohexol 350 mg/mL 500 mL Btl (per mL) IV (20:18)
[2023-04-09 20:30] VITALS: BP 167/66; PULSE 68; O2SAT 97
[2023-04-09] MEDS: TRAMadol 50 mg Tablet PO (21:13)
--- NOTE | 2023-04-09 21:14 | PC.NURSE ---
Patient sent home with 50mg tablet of Tramadol per physician orders.
[2023-04-09 21:18] VITALS: BP 175/72
== END 2023-04-09 21:20 | disposition home or self-care (01) ==
PROVIDERS: Emergency Provider Nurse Practitioner Family; PCP Nurse Practitioner Family
DX: M54.16 Radiculopathy, lumbar region (principal); J44.9 Chronic obstructive pulmonary disease, unspecified
CPT/HCPCS: 74177; 80053; 83690; 85025; 96374; 99285; J1100; J2360; Q9967

== ENCOUNTER 2024-04-10 19:54 | Emergency (ER) | payer MEDICARE, OTHER, SELFPAY ==
[2024-04-10] VITALS (7 sets, daily range): BP systolic 129–168; BP diastolic 62–97; PULSE 68–134; RESP 15–137; TEMP 37; O2SAT 94–96; BMI 33.9
--- NOTE | 2024-04-10 20:00 | ECG_ITS ---
[facility] Test Date: 2024-04-10 Pat Name: Andra Leroy Department: Room: Gender: Female Cinder Pitman: : 1940 Requested By: Laina Zhang Order Number: [id number] [place] MD: Tunde Marion M.D. Measurements Intervals [place] Rate: 128 P: 0 NE: 0 QRS: -5 QRSD: 84 T: 104 QT: 228 QTc: 333 Interpretive Statements ATRIAL FIBRILLATION WITH RAPID VENTRICULAR RESPONSE LOW QRS VOLTAGE IN PRECORDIAL LEADS [QRS DEFLECTION < 1.0 mV IN CHEST LEADS] POSSIBLE RIGHT VENTRICULAR CONDUCTION DELAY [RSR (QR) IN V1/V2] MINIMAL VOLTAGE CRITERIA FOR LVH, CONSIDER NORMAL VARIANT [MEETS CRITERIA IN ONE OF: R(aVL), S(V1), R(V5), R(V5/V6)+S(V1)] NONSPECIFIC ST & T-WAVE ABNORMALITY No previous ECG available for comparison Electronically Signed On 04-11-2024 10:29:32 CDT by Tunde Marion M.D. [id number]
--- NOTE | 2024-04-10 20:00 | XRR_ITS ---
PROCEDURE INFORMATION: Exam: XR Right Foot Exam date and time: 04/10/2024 8:14 PM Age: 84 years old Clinical indication: Pain and injury or trauma; Fall; Blunt trauma; Foot; Right TECHNIQUE: Imaging protocol: Radiologic exam of the right foot. Views: 3 or more views. COMPARISON: CR XR knee RT 1-2V [id number] 06/01/2021 10:01 AM FINDINGS: Bones/joints: No acute fractures or subluxations. The bones are osteopenic. Degenerative changes of the foot with joint space narrowing. Soft tissues: Soft tissue swelling of the foot. XR/XR foot RT min 3V* [id number] IMPRESSION: No acute fractures or subluxations. Prominent soft tissue swelling of the foot.
--- NOTE | 2024-04-10 20:00 | XRR_ITS ---
PROCEDURE INFORMATION: Exam: XR Left Knee Exam date and time: 04/10/2024 8:19 PM Age: 84 years old Clinical indication: Pain; Knee; Left; Additional info: Fall TECHNIQUE: Imaging protocol: Radiologic exam of the left knee. Views: 3 views. COMPARISON: No relevant prior studies available. FINDINGS: Bones/joints: Transverse fracture of the distal fibular metaphysis in near anatomic alignment. Moderate degenerative changes of the knee with joint space narrowing. Soft tissues: Soft tissue swelling of the knee. XR/XR knee LT 3V* [id number] IMPRESSION: Transverse fracture of the distal fibular metaphysis in near anatomic alignment.
--- NOTE | 2024-04-10 20:00 | XRR_ITS ---
PROCEDURE INFORMATION: Exam: XR Right Knee Exam date and time: 04/10/2024 8:17 PM Age: 84 years old Clinical indication: Injury or trauma; Fall; Blunt trauma; Knee; Right TECHNIQUE: Imaging protocol: Radiologic exam of the right knee. Views: 3 views. COMPARISON: CR XR knee RT 1-2V [id number] 06/01/2021 10:01 AM FINDINGS: Bones/joints: No acute fractures or subluxations. Moderate degenerative changes of the knee with joint space narrowing. Soft tissues: Soft tissue swelling of the knee. XR/XR knee RT 3V* [id number] IMPRESSION: No acute fractures or subluxations.
--- NOTE | 2024-04-10 20:04 | ED_ITS ---
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 Associated symptoms-after fall: Denies abdominal pain, chest pain, headache(s) or neck pain Review of Systems Const: Denies: fever(s), chills, body aches or change in appetite ENMT: Denies: throat pain or dental pain Card: Denies: chest pain Resp: Denies: dyspnea GI: Denies: abdominal pain, nausea, vomiting or diarrhea Musc: Reports: extremity pain; Denies: neck pain or back pain Skin/Breast: Denies: rash Neuro: Denies: headache(s) PFSH ED PFSH: Medical History Hypothyroid Atrial fibrillation COPD (chronic obstructive pulmonary disease) Post-polio syndrome SVT (supraventricular tachycardia) DDD (degenerative disc disease) Vitamin D deficiency Social History Smoking and tobacco/nicotine status: never used tobacco/nicotine Second hand smoke exposure: No Alcohol intake: never Substance/Drug Use: never Physical Exam Const: COMMON NORMALS: no acute distress, patient oriented x3 and healthy appearing HENMT: COMMON NORMALS: normocephalic and atraumatic HEAD & SCALP: normocephalic and atraumatic Eye: COMMON NORMALS: conjunctivae normal CONJUNCTIVA: Yes conjunctivae normal Neck/C-Spine: COMMON NORMALS: full ROM and supple Chest: COMMONS NORMALS: normal inspection of the chest Resp: COMMON NORMALS: normal respiratory effort Cardio: COMMON NORMALS: No murmurs present (Cardio) RATE: tachycardic RHYTHM: abnormal rhythm irregularly irregular Extremity: NARRATIVE EXTREMITY EXAM: bruising to right foot, bilateral knee tenderness with no definite deformity Neuro: COMMON NORMALS: patient oriented x3, moves all extremities and no focal motor deficits Psych: COMMON NORMALS: mental status grossly normal, Normal thought process present and cooperative THOUGHT PROCESS: Normal thought process present Skin: COMMON NORMALS: no rashes or lesions noted and no wounds GENERAL SKIN EXAM: no rashes or lesions noted Course Vital Signs: Vital signs: Vital Signs Temperature 98.6 F 04/10/24 19:55 Respiratory Rate 137 H 04/10/24 19:55 Blood Pressure 129/97 04/10/24 19:55 Pulse Oximetry 96 04/10/24 19:55 Oxygen Delivery Me thod Room Air 04/10/24 19:55 MDM - Fall Medical Decision Making Patient presents here with a proximal left fibula fracture patient is typically nonweightbearing as she is probably on poor relies from the legs. No other fractures noted we will place her knee immobilizer she has family takes care of her at home we will get her follow-up with orthopedics she is return if worsening does have A-fib her heart rates much improved here after [facility] Medical Records I reviewed the patient's medical records. Lab Data I reviewed the patient's lab results. Radiology Impressions Foot X-Ray 04/10/24 20:00 IMPRESSION: No acute fractures or subluxations. Prominent soft tissue swelling of the foot. Knee X-Ray 04/10/24 20:00 IMPRESSION: No acute fractures or subluxations. All radiology interpretation(s) finalized by discharge EKG Data EKG 1: I personally reviewed and interpreted this EKG as follows: EKG interpretation date: 04/10/24 EKG interpretation time: 20:10 Interpretation: afib with rvr hr [address] elevation qrs 84 qtc 304 Discharge Plan Discharge Patient Disposition: Home Clinical Impression: Fall Qualifiers: Encounter type: initial encounter Qualified Code(s): W19.XXXA - Unspecified fall, initial encounter Closed left fibular fracture Qualifiers: Encounter type: initial encounter Fibula location: proximal Condition: Stable Prescriptions: New hydrocodone-acetaminophen 5-325 mg tablet 1 tab PO Q6H PRN (Reason: pain) Qty: 14 0RF No Action amlodipine [Norvasc] 5 mg tablet 10 mg PO DAILY 90 Days Qty: 120 2RF cholecalciferol (vitamin D3) 1,250 mcg (50,000 unit) capsule 50,000 unit PO .WEEKLY Qty: 4 2RF levothyroxine 50 mcg tablet 50 mcg PO DAILY Qty: 30 2RF apixaban 5 mg tablet 5 mg PO BID 90 Days Qty: 180 0RF tramadol 50 mg tablet 50 mg PO Q8H PRN (Reason: pain (scale score 7-10)) Qty: 12 0RF Discharge Orders: Discharge ED (Routine); Ordered 04/10/24 Ordered By: Laina Zhang Referrals: Ernestina Nicholson NP [Primary Care Provider] - Ana Eli MD [Physician] - 1-3 days Discharge Diet: Advance as tolerated Discharge Activity: Limit activity as instructed Patient Instructions: Leg Fracture (ED), Opioid Safety Coding Level of Care Code ED Forest Nursery Supervisor for Andriy Raymundo
[2024-04-10] MEDS: dilTIAZem 5 mg/mL SDV 5 mL 20 MG IVP (20:09)
[2024-04-10] MEDS: HYDROcodone-acetaminophen 5-325 mg Tablet 2 TAB PO (22:15)
--- NOTE | 2024-04-11 11:29 | DCPLANNER ---
Message sent to Orthopedics for follow up on a closed left fibular fracture.
== END 2024-04-10 22:25 | disposition home or self-care (01) ==
PROVIDERS: Emergency Provider Emergency Medicine; PCP Nurse Practitioner Family
DX: S82.832A Other fracture of upper and lower end of left fibula, initial encounter for closed fracture (principal); I48.20 Chronic atrial fibrillation, unspecified; J44.9 Chronic obstructive pulmonary disease, unspecified; G14 Postpolio syndrome; X50.1XXA Overexertion from prolonged static or awkward postures, initial encounter
CPT/HCPCS: 73562; 73630; 93005; 96374; 99284; J3490

== ENCOUNTER 2024-04-21 16:08 | Emergency (ER) | payer MEDICARE, OTHER, SELFPAY ==
[2024-04-21] VITALS (8 sets, daily range): BP systolic 130–195; BP diastolic 71–96; PULSE 65–119; RESP 12–19; TEMP 36.9; O2SAT 92–97; BMI 32.8
--- NOTE | 2024-04-21 16:32 | CTR_ITS ---
PROCEDURE INFORMATION: Exam: CT Abdomen And Pelvis With Contrast Exam date and time: 04/21/2024 5:17 PM Age: 84 years old Clinical indication: Abdominal pain; Patient HX: Rlq pain; Diarrhea; Additional info: Right sided abdominal pain TECHNIQUE: Imaging protocol: Computed tomography of the abdomen and pelvis with contrast. Radiation optimization: All CT scans at this facility use at least one of these dose optimization techniques: automated exposure control; mA and/or kV adjustment per patient size (includes targeted exams where dose is matched to clinical indication); or iterative reconstruction. Contrast material: OMNIPAQUE 350; Contrast volume: 100 ml; Contrast route: INTRAVENOUS (IV); COMPARISON: CT abdomen pelvis w con* [id number] 04/09/2023 8:15 PM RADIATION DOSE METRICS: Total DLP (mGy-cm): 891.55 FINDINGS: Lungs: Emphysematous changes. Bibasilar atelectasis. Pleural spaces: Large right and small to moderate left pleural effusions. Coronary arteries: Coronary artery atherosclerotic calcification suspected. Liver: Cirrhotic liver suspected. Gallbladder and biliary ducts: Gallbladder distended with suspected cholelithiasis, ultrasound could further evaluate this. Common bile duct dilated at 12.2 mm, consider correlation with MRCP and/or ultrasound. Pancreas: Normal. No ductal dilation. Spleen: Normal. No splenomegaly. Adrenal glands: Right adrenal 11 mm indeterminate nodule, similar to prior exam, dedicated adrenal imaging could further characterize this. Kidneys and ureters: Normal. No hydronephrosis. Stomach and bowel: Gastric wall thickening is seen in the region of the gastric antrum, series 3, image 29, may reflect an underlying area of inflammation or mass, please correlate clinically and consider correlation with endoscopy. Diverticulosis without diverticulitis. Appendix: No evidence of appendicitis. Intraperitoneal space: Moderate abdominal ascites. Suspected omental caking and nodularity concerning for metastatic disease, please correlate clinically. Vasculature: Unremarkable. No abdominal aortic aneurysm. Lymph nodes: Unremarkable. No enlarged lymph nodes. Urinary bladder: Unremarkable as visualized. Reproductive: Subcentimeter calcified uterine fibroid. Bones/joints: Severe osteoarthritis of the hips bilaterally. Degenerative disc space disease throughout the spine. Subtle lucency seen in several vertebral bodies concerning for lytic bony lesions, for instance L2, series 6, image 34, consider correlation with MRI and/or whole-body nuclear medicine bone scan. Soft tissues: Unremarkable. CT/CT abdomen pelvis w con* [id number] IMPRESSION: 1. Gastric wall thickening is seen in the region of the gastric antrum, series 3, image 29, may reflect an underlying area of inflammation or mass, please correlate clinically and consider correlation with endoscopy. 2. Cirrhotic liver suspected. 3. Right adrenal 11 mm indeterminate nodule, similar to prior exam, dedicated adrenal imaging could further characterize this. 4. Severe osteoarthritis of the hips bilaterally. 5. Large right and small to moderate left pleural effusions. 6. Emphysematous changes. 7. Bibasilar atelectasis. 8. Coronary artery atherosclerotic calcification suspected. 9. Gallbladder distended with suspected cholelithiasis, ultrasound could further evaluate this. 10. Moderate abdominal ascites. 11. Suspected omental caking and nodularity concerning for metastatic disease, please correlate clinically. 12. Subcentimeter calcified uterine fibroid. 13. Diverticulosis without diverticulitis. 14. Degenerative disc space disease throughout the spine. 15. Subtle lucency seen in several vertebral bodies concerning for lytic bony lesions, for instance L2, series 6, image 34, consider correlation with MRI and/or whole-body nuclear medicine bone scan. 16. Common bile duct dilated at 12.2 mm, consider correlation with MRCP and/or ultrasound.
--- NOTE | 2024-04-21 16:34 | ECG_ITS ---
[facility] Test Date: 2024-04-21 Pat Name: Andra Leroy Department: Room: Gender: Female Skein Winder: : 1940 Requested By: José Miguel Sanchez Order Number: [id number] [place] MD: OLGA WHITEHEAD Measurements Intervals [place] Rate: 62 P: 96 ME: 207 QRS: 7 QRSD: 89 T: 23 QT: 428 QTc: 438 Interpretive Statements SINUS RHYTHM LOW QRS VOLTAGE IN PRECORDIAL LEADS [QRS DEFLECTION < 1.0 mV IN CHEST LEADS] POSSIBLE RIGHT VENTRICULAR CONDUCTION DELAY [RSR (QR) IN V1/V2] Compared to ECG 04/10/2024 20:10:52 Atrial fibrillation no longer present T-wave abnormality no longer present Electronically Signed On 04-21-2024 20:18:21 CDT by OLGA WHITEHEAD [email or web address] [facility] [email or web address][facility] [email or web address]/[id number]
[2024-04-21] MEDS: dilTIAZem 5 mg/mL SDV 5 mL 10 MG IVP ×2 (16:41→20:59)
[2024-04-21] MEDS: sodium chloride 0.9% 1,000 ML 999 ML IV (16:41)
[2024-04-21 16:44] LABS: Basophils % 0.5 %; Eosinophils # 0.1 10^3/uL (0.0-0.8); Eosinophils % 1.5 %; Hematocrit 39.7 % (36-47); Lymphocytes # 2.2 10^3/uL (0.8-4.8); Mean Corpuscular HGB Conc 33.2 g/dL (30-55); Mean Corpuscular Hemoglobin 30.1 pg (27-33); Mean Corpuscular Volume 90.6 fl (85-98); Mean Platelet Volume 8.8 fL (7.4-10.4); Monocytes # 0.9 10^3/uL (0.2-0.9); Neutrophils # 4.48 10^3/uL (1.8-7.7); Neutrophils % 57.7 %; Nucleated Red Blood Cells % 0 %; Platelet Count 413 10^3/cmm (157-399); Red Blood Count 4.38 10^6/uL (3.85-5.65); Red Cell Distribution Width 14.6 % (12.1-15.1); White Blood Count 7.76 10^3/uL (3.29-11.43)
[2024-04-21 17:04] LABS: Troponin(5th) Baseline 22 ng/L (0-10)
--- NOTE | 2024-04-21 17:06 | W.ED.ABDPA2 ---
HPI - Abdominal Pain General: Chief Complaint: Abdominal Pain Stated Complaint: ABD PAIN Time Seen by Provider: 04/21/24 16:13 History of Present Illness: 84-year-old female presents emergency department with her daughter chief complaint of ongoing right-sided abdominal pain patient recent seen by her primary care doctor in the office in which it was discussed about need for gallbladder workup patient has had any issues with swallowing would last several weeks he does endorse having right upper quadrant and right lower quad abdominal pain after eating she does not endorse any fevers or chills or any other associated symptoms. Associated Symptoms: Reports nausea; Denies chills, fever(s) and vomiting Related Data Previous Rx's Medication Instructions Recorded amlodipine 5 mg tablet (Norvasc) 10 mg (2 x 5 mg) PO DAILY 90 days 04/21/20 #120 tabs cholecalciferol (vitamin D3) 1,250 50,000 unit PO .WEEKLY #4 caps 05/16/20 mcg (50,000 unit) capsule levothyroxine 50 mcg tablet 50 mcg PO DAILY #30 tabs 08/13/20 apixaban 5 mg tablet 5 mg PO BID 90 days #180 tabs 09/24/20 tramadol 50 mg tablet 50 mg PO Q8H PRN pain (scale score 04/09/23 7-10) #12 tabs hydrocodone 5 mg-acetaminophen 325 1 tab PO Q6H PRN pain #14 tabs 04/10/24 mg tablet furosemide 20 mg tablet (Lasix) 20 mg PO DAILY #3 tabs 04/21/24 hydrocodone 5 mg-acetaminophen 325 1 tab PO Q6H #10 tabs 04/21/24 mg tablet Allergies Allergy/AdvReac Type Severity Reaction Status Date / Time Cephalosporins Allergy Unknown Verified 09/06/22 11:24 ciprofloxacin [From Cipro] Allergy Unknown Verified 09/06/22 11:24 tetracycline Allergy unknown Verified 09/06/22 11:24 Review of Systems General: Reports: 10 or more systems reviewed and unremarkable except in HPI and below Const: Denies: fever(s), chills, fatigue or malaise Eyes: Denies: change in vision or blurry vision Card: Denies: chest pain or palpitations Resp: Denies: dyspnea or productive cough GI: Reports: abdominal pain and nausea; Denies: vomiting : Denies: flank pain Musc: Denies: extremity pain or extremity swelling Skin/Breast: Denies: rash or pruritus Neuro: Denies: headache(s) Psych: Denies: anxiety or depression Josue/Lymph: Denies: easy bleeding All/Imm: Denies: urticaria, throat swelling or facial swelling PFSH ED PFSH: Medical History Hypothyroid Atrial fibrillation COPD (chronic obstructive pulmonary disease) Post-polio syndrome SVT (supraventricular tachycardia) DDD (degenerative disc disease) Vitamin D deficiency Social History Smoking and tobacco/nicotine status: never used tobacco/nicotine Second hand smoke exposure: No Alcohol intake: never Substance/Drug Use: never Physical Exam Const: COMMON NORMALS: no acute distress, patient oriented x3 and healthy appearing HENMT: COMMON NORMALS: normocephalic and atraumatic HEAD & SCALP: normocephalic and atraumatic Eye: COMMON NORMALS: Equal, round and reactive pupils present and EOMs intact bilaterally PUPIL: Yes Equal, round and reactive pupils present Neck/C-Spine: COMMON NORMALS: full ROM, supple and no JVD Lymph: LYMPHATIC: no lymphadenopathy noted Chest: COMMONS NORMALS: normal inspection of the chest and normal palpation of entire chest wall Resp: COMMON NORMALS: normal respiratory effort, No retractions and clear to auscultation bilaterally EFFORT & INSPECTION: Yes able to speak in complete sentences and Yes symmetric chest movement AUSCULTATION: clear to auscultation bilaterally Cardio: COMMON NORMALS: no JVD, regular rate and regular rhythm RATE: regular rate RHYTHM: regular rhythm GI: COMMON NORMALS: Soft to palpation; negative for Normal to inspection, nondistended, normoactive bowel sounds present and negative for non-tender (Moderate pain to palpation appreciated otherwise soft nontender) INSPECTION: Yes normal to inspection PALPATION: Yes Soft to palpation : COMMON NORMALS: Yes no CVA tenderness BLADDER/KIDNEY EXAM: Yes no CVA tenderness Back/Pelvis: COMMON NORMALS: no CVA tenderness Extremity: COMMON NORMALS: normal to inspection and full ROM Neuro: COMMON NORMALS: patient oriented x3, CN's II-XII intact bilaterally, moves all extremities and no focal motor deficits Psych: COMMON NORMALS: mental status grossly normal, Normal thought process present, cooperative and normal affect THOUGHT PROCESS: Normal thought process present Skin: COMMON NORMALS: no rashes or lesions noted GENERAL SKIN EXAM: no rashes or lesions noted Course Vital Signs: Vital signs: Vital Signs Temperature 98.5 F 04/21/24 16:10 Pulse Rate 82 04/21/24 21:04 Respiratory Rate 19 H 04/21/24 16:47 Blood Pressure 130/89 04/21/24 21:04 Pulse Oximetry 94 04/21/24 21:04 Oxygen Delivery Me thod Room Air 04/21/24 21:04 MDM - Abdominal Pain Medical Decision Making Due to patient's symptoms and condition IV is established basic lab work and imaging will be obtained we will continue to follow. Lab work came back unremarkable patient CT imaging of that abdomen pelvis with contrast revealed concerning findings for carcinomatosis as well as ascites as well as a dilated gallbladder ultrasound was obtained that did not reveal any obvious acute cholecystitis but cholelithiasis discussed the concerns of cancer finding with the patient and family present in which I discussed the patient's case with Dr. Martinez on-call oncologist in which a social ED social work consult will be placed in for him as well as the general surgery for biopsy in which Dr. Martinez to report he will contact the family on Tuesday for further evaluation and urgent follow-up. I did advise the patient that she did have several spots in her lumbar spine concerning for metastases as well all questions were fully answered prior to subsequent discharge patient was found to be in A-fib with RVR patient endorses that this is quite common for her will be providing her another dose of Cardizem prior to subsequent discharge home patient is requesting to be discharged home at this time. Lab Data 04/21/24 16:39 04/21/24 16:39 Labs/Radiology: Radiology Impressions Abdomen/Pelvis CT 04/21/24 16:32 IMPRESSION: 1. Gastric wall thickening is seen in the region of the gastric antrum, series 3, image 29, may reflect an underlying area of inflammation or mass, please correlate clinically and consider correlation with endoscopy. 2. Cirrhotic liver suspected. 3. Right adrenal 11 mm indeterminate nodule, similar to prior exam, dedicated adrenal imaging could further characterize this. 4. Severe osteoarthritis of the hips bilaterally. 5. Large right and small to moderate left pleural effusions. 6. Emphysematous changes. 7. Bibasilar atelectasis. 8. Coronary artery atherosclerotic calcification suspected. 9. Gallbladder distended with suspected cholelithiasis, ultrasound could further evaluate this. 10. Moderate abdominal ascites. 11. Suspected omental caking and nodularity concerning for metastatic disease, please correlate clinically. 12. Subcentimeter calcified uterine fibroid. 13. Diverticulosis without diverticulitis. 14. Degenerative disc space disease throughout the spine. 15. Subtle lucency seen in several vertebral bodies concerning for lytic bony lesions, for instance L2, series 6, image 34, consider correlation with MRI and/or whole-body nuclear medicine bone scan. 16. Common bile duct dilated at 12.2 mm, consider correlation with MRCP and/or ultrasound. Abdomen Ultrasound 04/21/24 18:19 IMPRESSION: 1. Cholelithiasis, negative for definite cholecystitis. If concern for cholecystitis remains clinically consider correlation with a nuclear medicine HIDA scan. 2. Gallbladder wall thickening to 4 mm likely related to ascites. 3. Common bile duct dilated to 9 mm likely related to age. 4. Hepatic steatosis. 5. Right pleural effusion partially visualized. Laboratory Results WBC 7.76 10^3/uL (3.29-11.43) 04/21/24 16:39 RBC 4.38 10^6/uL (3.85-5.65) 04/21/24 16:39 Hgb 13.20 g/dL (11.27-16.99) 04/21/24 16:39 Hct 39.7 % (36-47) 04/21/24 16:39 MCV 90.6 fl (85-98) 04/21/24 16:39 MCH 30.1 pg (27-33) 04/21/24 16:39 MCHC 33.2 g/dL (30-55) 04/21/24 16:39 RDW 14.6 % (12.1-15.1) 04/21/24 16:39 Plt Count 413 10^3/cmm (157-399) H 04/21/24 16:39 MPV 8.8 fL (7.4-10.4) 04/21/24 16:39 Neut % (Auto) 57.7 % 04/21/24 16:39 Lymph % (Auto) 28.0 % 04/21/24 16:39 Nolan % (Auto) 12.0 % 04/21/24 16:39 Eos % (Auto) 1.5 % 04/21/24 16:39 Baso % (Auto) 0.5 % 04/21/24 16:39 Neut # (Auto) 4.48 10^3/uL (1.8-7.7) 04/21/24 16:39 Lymph # (Auto) 2.2 10^3/uL (0.8-4.8) 04/21/24 16:39 Nolan # (Auto) 0.9 10^3/uL (0.2-0.9) 04/21/24 16:39 Eos # (Auto) 0.1 10^3/uL (0.0-0.8) 04/21/24 16:39 Baso # (Auto) 0.0 10^3/uL (0.0-0.1) 04/21/24 16:39 Nucleated RBC % (auto) 0 % 04/21/24 16:39 Nucleated RBCs # 0.0 /100WBC 04/21/24 16:39 Sodium 133 mmol/L (136-145) L 04/21/24 16:39 Potassium 4.0 mmol/L (3.5-5.1) 04/21/24 16:39 Chloride 100 mmol/L (98-107) 04/21/24 16:39 Carbon Dioxide 20 mmol/L (22-29) L 04/21/24 16:39 Anion Gap 17.0 (5-19) 04/21/24 16:39 BUN 6 mg/dL (8-23) L 04/21/24 16:39 Creatinine 0.5 mg/dL (0.5-0.9) 04/21/24 16:39 GFR Calculation Not Reportable 04/21/24 16:39 Glucose 101 mg/dL (65-115) 04/21/24 16:39 Calculated Osmolality 274 mOsm/kg (285-295) L 04/21/24 16:39 Lactic Acid 1.1 mmol/L (0.5-2.2) 04/21/24 16:39 Calcium 8.8 mg/dL (8.5-10.5) 04/21/24 16:39 Total Bilirubin 0.4 mg/dL (0.15-1.2) 04/21/24 16:39 AST 21 U/L (0-32) 04/21/24 16:39 ALT 11 U/L (0-33) 04/21/24 16:39 Alkaline Phosphatase 76 U/L (35-105) 04/21/24 16:39 Troponin T Baseline 22 ng/L (0-10) H 04/21/24 16:39 Troponin T 120 Minute 22.59 ng/L (0-10) H 04/21/24 19:40 Delta Troponin T 0.59 ABS# (0-10) 04/21/24 19:40 C-Reactive Protein 13.8 mg/L (0.0-4.9) H 04/21/24 16:39 NT-Pro-B Natriuret Pep 509 pg/mL (0-450) H 04/21/24 16:39 Total Protein 6.0 g/dL (6.6-8.7) L 04/21/24 16:39 Albumin 3.9 g/dL (3.5-5.2) 04/21/24 16:39 Globulin 2.1 g/dL (1.3-4.6) 04/21/24 16:39 Lipase 37 U/L (13-60) 04/21/24 16:39 Urine Color Yellow (Yellow) 04/21/24 19:22 Urine Appearance Clear (CLEAR) 04/21/24 19:22 Urine pH 5.5 (5-7) 04/21/24 19:22 Ur Specific [place] 1.033 (1.005-1.030) H 04/21/24 19:22 Urine Protein Negative (Negative) 04/21/24 19:22 Urine Glucose (UA) Negative (Normal) 04/21/24 19:22 Urine Ketones Negative (Negative) 04/21/24 19:22 Urine Blood Negative (Negative) 04/21/24 19:22 Urine Nitrate Negative (Negative) 04/21/24 19:22 Urine Bilirubin Negative (Negative) 04/21/24 19:22 Urine Urobilinogen 0.2 mg/dL (Negative) 04/21/24 19:22 Ur Leukocyte Esterase Trace (Negative) A 04/21/24 19:22 Urine RBC 0-2 /hpf (0-2) 04/21/24 19:22 Urine WBC 0-5 /hpf (0-5) 04/21/24 19:22 Ur Squamous Epith Cells 0-5 /hpf (0-5) 04/21/24 19:22 Amorphous Sediment Not Reportable 04/21/24 19:22 Urine Bacteria None seen /hpf (NONE) 04/21/24 19:22 Hyaline Casts 0-4 /lpf H 04/21/24 19:22 All radiology interpretation(s) finalized by discharge Discharge Plan Discharge Patient Disposition: Home Clinical Impression: Paroxysmal A-fib, Abdominal carcinomatosis Condition: Stable Prescriptions: New hydrocodone-acetaminophen 5-325 mg tablet 1 tab PO Q6H Qty: 10 0RF furosemide [Lasix] 20 mg tablet 20 mg PO DAILY Qty: 3 0RF No Action amlodipine [Norvasc] 5 mg tablet 10 mg PO DAILY 90 Days Qty: 120 2RF cholecalciferol (vitamin D3) 1,250 mcg (50,000 unit) capsule 50,000 unit PO .WEEKLY Qty: 4 2RF levothyroxine 50 mcg tablet 50 mcg PO DAILY Qty: 30 2RF apixaban 5 mg tablet 5 mg PO BID 90 Days Qty: 180 0RF tramadol 50 mg tablet 50 mg PO Q8H PRN (Reason: pain (scale score 7-10)) Qty: 12 0RF hydrocodone-acetaminophen 5-325 mg tablet 1 tab PO Q6H PRN (Reason: pain) Qty: 14 0RF Discharge Orders: Discharge ED (Routine); Ordered 04/21/24 Ordered By: José Miguel Sanchez Referrals: Ernestina Nicholson NP [Primary Care Provider] - Shyam Martinez MD [Hospitalist] - 1-3 days (You will be contacted by Dr. Martinez's office on Tuesday for further eval if you not hear anything please contact his office.) Discharge Diet: Usual diet Discharge Activity: Increase activity as tolerated Patient Instructions: Malignant Ascites, Ascites (ED), Opioid Safety, Pain Management Activity Restrictions/Additional Instructions: You are instructed to further follow-up with the above oncologist referral has been placed up on your behalf you should be contacted by his office on Tuesday Dr. Martinez please take medications as prescribed in which please return the interim if any of your symptoms persist or worse. Coding Level of Care Code ED Financial Service Professional for Andriy Raymundo
[2024-04-21 17:08] LABS: Lactic Sepsis W/Reflex 1.1 mmol/L (0.5-2.2)
[2024-04-21 17:17] LABS: Alanine Aminotransferase 11 U/L (0-33); Albumin Level 3.9 g/dL (3.5-5.2); Alkaline Phosphatase 76 U/L (35-105); Aspartate Amino Transferase 21 U/L (0-32); Blood Urea Nitrogen 6 mg/dL (8-23); C Reactive Protein 13.8 mg/L (0.0-4.9); Calcium 8.8 mg/dL (8.5-10.5); Carbon Dioxide 20 mmol/L (22-29); Chloride 100 mmol/L (98-107); Creatinine Clr Calc Pharmacy 62.0301; Globulin 2.1 g/dL (1.3-4.6); Glucose 101 mg/dL (65-115); Lipase 37 U/L (13-60); NT Pro B Type Natriuretic Pept 509 pg/mL (0-450); Osmolality Calculated 274 mOsm/kg (285-295); Sodium 133 mmol/L (136-145); Total Bilirubin 0.4 mg/dL (0.15-1.2)
[2024-04-21] MEDS: iohexol 350 mg/mL 500 mL Btl (per mL) IV (17:21)
[2024-04-21] MEDS: fentaNYL 50 mcg/mL INJ 2mL 25 MCG IVP (17:28)
--- NOTE | 2024-04-21 18:19 | USR_ITS ---
PROCEDURE INFORMATION: Exam: US Abdomen, Limited; Right Upper Quadrant Exam date and time: 04/21/2024 6:39 PM Age: 84 years old Clinical indication: Abdominal pain; Generalized; Additional info: C/O gallbladder dz, with cbd obstruction TECHNIQUE: Imaging protocol: Real time ultrasound of the abdomen with image documentation. Limited exam focused on the right upper quadrant. COMPARISON: CT abdomen pelvis w con* [id number] 04/21/2024 5:17 PM FINDINGS: Pleural spaces: Right pleural effusion partially visualized. Liver: Hepatic steatosis. Gallbladder: Cholelithiasis, negative for definite cholecystitis. If concern for cholecystitis remains clinically consider correlation with a nuclear medicine HIDA scan. Gallbladder wall thickening to 4 mm likely related to ascites. Biliary ducts: Common bile duct dilated to 9 mm likely related to age. Pancreas: Visualized pancreas is unremarkable. Right kidney: Normal. No mass. No hydronephrosis. US/US abdomen limited [id number] IMPRESSION: 1. Cholelithiasis, negative for definite cholecystitis. If concern for cholecystitis remains clinically consider correlation with a nuclear medicine HIDA scan. 2. Gallbladder wall thickening to 4 mm likely related to ascites. 3. Common bile duct dilated to 9 mm likely related to age. 4. Hepatic steatosis. 5. Right pleural effusion partially visualized.
[2024-04-21] MEDS: fentaNYL 50 mcg/mL INJ 2mL IVP (19:29)
[2024-04-21] MEDS: ondansetron 2 mg/ML SDV 2 mL 4 MG IVP (19:30)
[2024-04-21 19:33] LABS: Charge for UA Resulting for Rev
[2024-04-21 19:35] LABS: Bilirubin Urine Negative (Negative); Blood Urine Negative (Negative); Glucose Urine UA Negative (Normal); Ketones Urine Negative (Negative); Leukocyte Esterase Urine Trace (Negative); Nitrate Urine Negative (Negative); Protein Urine Negative (Negative); Urine Appearance Clear (CLEAR); Urine Color Yellow (Yellow); Urobilinogen Urine 0.2 mg/dL (Negative); pH Urine 5.5 (5-7)
[2024-04-21 19:36] LABS: Specific Gravity, Urine 1.033 (1.005-1.030)
[2024-04-21 19:40] LABS: Bacteria Urine None Seen /hpf; Hyaline Casts Urine 0-4 /lpf; RBC Urine 0-2 /hpf (0-2); Squamous Epithelial Cell Urine 0-5 /hpf (0-5); WBC Urine 0-5 /hpf (0-5)
[2024-04-21 20:01] LABS: Troponin 5 2HR 22.59 ng/L (0-10); Troponin 5 2HR Delta 0.59 ABS# (0-10)
--- NOTE | 2024-04-21 20:57 | XRR_ITS ---
PROCEDURE INFORMATION: Exam: XR Chest Exam date and time: 04/21/2024 9:07 PM Age: 84 years old Clinical indication: Prior surgery; Surgery date: 6+ months; Surgery type: Loop recorder (nf); Patient HX: Afib with rvr; Epigastric pain TECHNIQUE: Imaging protocol: Radiologic exam of the chest. Views: 1 view. COMPARISON: CR XR chest 1V portable [id number] 09/06/2022 11:09 AM FINDINGS: Lungs: No focal consolidation. Pleural spaces: Small right-sided pleural effusion. Heart/Mediastinum: Unremarkable. No cardiomegaly. Bones/joints: Postsurgical changes status post total left shoulder arthroplasty. XR/XR chest 1V portable [id number] IMPRESSION: 1. Small right-sided pleural effusion. 2. No focal consolidation.
--- NOTE | 2024-04-21 21:35 | DCPLANNER ---
Message sent to Dr Martinez's office for further follow up- abdominal carcinomatosis.
== END 2024-04-21 22:45 | disposition home or self-care (01) ==
PROVIDERS: Emergency Provider Emergency Medicine; PCP Nurse Practitioner Family
DX: C80.0 Disseminated malignant neoplasm, unspecified (principal); I48.0 Paroxysmal atrial fibrillation
CPT/HCPCS: 71045; 74177; 76705; 80053; 81003; 81015; 83605; 83690; 83880; 84484; 85025; 86140; 86304; 93005; 96361; 96374; 96375; 96376; 99285; J2405; J3010; J3490; J7030; Q9967

== ENCOUNTER → 2024-04-30 09:59 | Day surgery (SDC) | payer MEDICARE, OTHER, SELFPAY ==
[2024-04-30] VITALS (8 sets, daily range): BP systolic 150–194; BP diastolic 67–92; PULSE 70–84; RESP 15–19; TEMP 36.3; O2SAT 96–98; BMI 31.3
--- NOTE | 2024-04-30 10:08 | US_ITS ---
WS: [id number] ULTRASOUND-GUIDED THORACENTESIS, RIGHT HISTORY: pleural effusion Procedure, risks, and complications were explained to the patient. With the patient in an upright pos ition, the skin over the RIGHT posterior thorax was cleansed with ChloraPrep and anesthetized with 1% buffered lidocaine. A 5 [place] Yueh needle is inserted into the pleural fluid without complication. Approximately 800 cc of dark yellow pleural fluid is removed without difficulty. Specimen collected for analysis as requested. / thoracentesis [id number] IMPRESSION: 1. RIGHT thoracentesis yielding 800 cc of fluid. 2. Chest radiograph to follow to evaluate for pneumothorax.
--- NOTE | 2024-04-30 10:10 | US_ITS ---
WS: [id number] ULTRASOUND GUIDED BIOPSY ABDOMEN/OMENTAL CARCINOMATOSIS. HISTORY: omental mass Procedure, risks, and complications are explained to the patient. Consent was obtained. Skin is clean sed with ChloraPrep and anesthetized with 1% buffered lidocaine. Prior imaging studies were reviewed. Omental mass is identified in the infraumbilical location. Small dermatotomy was made. Core biopsies are performed with an 18 and 20-gauge coaxial needle. No complications were encountered. Specimen is placed in formalin. Patient will be observed for 20 minutes after procedure. US/ biopsy [id number] IMPRESSION: Uncomplicated ultrasound-guided biopsy of omental carcinomatosis.
[2024-04-30] MEDS: sodium chloride 0.9% 1,000 ML 30 ML IV (10:44)
[2024-04-30 10:56] LABS: INR 1.01 (0.8-1.2)
[2024-04-30] MEDS: fentaNYL 50 mcg/mL INJ 2mL 25 MCG IVP (12:07)
--- NOTE | 2024-04-30 12:32 | XR_ITS ---
WS: [id number] PORTABLE CHEST HISTORY: post thoracentesis COMPARISON: None available. No pneumothorax status post RIGHT thoracentesis. Very small LEFT pleural effusion with slight elevation of the LEFT hemidiaphragm. No consolidation or pneumonia. Cardiac size: Moderately enlarged cardiac silhouette. Mediastinum/Aorta: Mild atherosclerosis aorta. Advanced degenerative changes at the RIGHT glenohumeral joint. High riding humeral head likely from r otator cuff tear. LEFT humeral head prosthesis. XR/XR chest 1V portable [id number] IMPRESSION: No pneumothorax status post RIGHT thoracentesis.
[2024-04-30 12:56] LABS: Cyto Order Verification Order Verified
[2024-04-30 12:57] LABS: Appearance, Pleural Fluid CLOUDY (CLEAR); Color, Pleural Fluid Other (Pale Yellow); PATH Referal YES
[2024-04-30 13:03] LABS: Mononuclear %, Pleural Fluid 89 %; Polynuclear Cells, Pleural % 12 %
[2024-04-30 13:14] LABS: Pleural Fluid Albumin 2.5 g/dL; Pleural Fluid Cholesterol 86 mg/dL
[2024-04-30 13:15] LABS: LDH Pleural Fluid 717 U/L
== END ==
PROVIDERS: Radiology Diagnostic Radiology; PCP Nurse Practitioner Family; Visit Provider Family Medicine
PROC: (CPT 32554; principal; 2024-04-30 11:30)
DX: J90 Pleural effusion, not elsewhere classified (principal)
CPT/HCPCS: 32555; 36415; 71045; 76942; 80503; 82042; 82465; 82945; 83615; 85610; 87070; 87075; 87205; 88112; 88305; 89050; 96374; 99152; 99153; J3010; J7030

== ENCOUNTER 2024-05-09 09:41 | Oncology outpatient (recurring) (ONCR) | payer MEDICARE, OTHER, SELFPAY | END 2024-06-04 23:59 | disposition home or self-care (01) | PROVIDERS: PCP Nurse Practitioner Family; Visit Provider Internal Medicine Medical Oncology | DX: C48.2 Malignant neoplasm of peritoneum, unspecified (principal) | CPT/HCPCS: 99205 ==

== ENCOUNTER 2024-08-09 17:28 | Emergency (ER) | payer MEDICARE, OTHER, SELFPAY ==
[2024-08-09 17:39] VITALS: BP 135/84; PULSE 82; RESP 16; TEMP 36.4; O2SAT 95; BMI 31.3
--- NOTE | 2024-08-09 17:57 | ED_ITS ---
HPI - General Adult 2 General: Chief complaint: Anxiety Stated complaint: anxiety Time Seen by Provider: 08/09/24 17:30 Source: patient Mode of arrival: EMS Limitations: no limitations History of Present Illness: Patient is a nice 84-year-old female who presents to ED today via EMS. Patient tells me she is here because she feels dehydrated . She states she feels generally weak and has not been eating and drinking much. Patient has a known history of stage IV metastatic peritoneal carcinoma. She saw Dr. Martinez back in May. His documentation from this visit was reviewed. She was offered palliative chemotherapy. Had mentioned targeted therapy after gene sequencing but they were later told they did not have enough tissue to do this and she needed to come back to which she declined. Patient states she has decided she does not want to do chemotherapy or any further treatment. She had spoken to her primary care provider in [place] and decided to go on hospice care. Her primary care reportedly placed this referral. She states hospice had arrived to her home tonight around the same time that the ambulance arrived so she just came here instead. She still wants to be placed on hospice and is agreeable to have them come speak to her here in the emergency department if they are available. She feels anxious over her diagnosis. Relieving factors: none Exacerbating factors: none Associated symptoms: Reports malaise; Deny chest pain, dyspnea, headache(s), rash or vomiting Treatments prior to arrival: none Related Data Home Medications Medication Instructions Recorded Confirmed acetaminophen 500 mg tablet 1,000 mg PO Q6H PRN Pain 04/26/24 05/09/24 ascorbic acid (vitamin C) 1,000 mg 1,000 cap PO DAILY 04/26/24 05/09/24 capsule,extended release cetirizine 10 mg tablet (Zyrtec) 10 mg PO DAILY 04/26/24 05/09/24 citalopram 20 mg tablet 20 mg PO DAILY 04/26/24 05/09/24 shshspdr-rlm-jybnt ac 400 1 tab PO DAILY 04/26/24 05/09/24 mcg-calcium carb 500 mg-vit K1 20 mcg tablet (Women's 50 Plus Multivitamin) diltiazem HCl 180 mg mg PO 05/09/24 05/09/24 capsule,extended release 24 hr Previous Rx's Medication Instructions Recorded levothyroxine 50 mcg tablet 50 mcg PO DAILY #30 tabs 08/13/20 apixaban 5 mg tablet 5 mg PO BID 90 days #180 tabs 09/24/20 hydrocodone 5 mg-acetaminophen 325 1 tab PO Q6H PRN pain #14 tabs 04/10/24 mg tablet furosemide 20 mg tablet (Lasix) 20 mg PO DAILY #3 tabs 04/21/24 Allergies Allergy/AdvReac Type Severity Reaction Status Date / Time Cephalosporins Allergy Unknown Verified 05/09/24 09:55 ciprofloxacin [From Cipro] Allergy Unknown Verified 05/09/24 09:55 tetracycline Allergy unknown Verified 05/09/24 09:55 Review of Systems 2 Const: Reports: change in appetite, malaise and other (feels weak); Denies: fever(s), chills or body aches Card: Denies: chest pain Resp: Denies: dyspnea GI: Denies: abdominal pain, vomiting or diarrhea : Denies: flank pain or dysuria Skin/Breast: Denies: rash Neuro: Denies: headache(s) or dizziness Psych: Reports: anxiety PFSH ED 2 PFSH: Medical History History of lower leg fracture Proximal left fibula fracture Degenerative arthritis Anxiety Primary peritoneal carcinomatosis Hypothyroid Atrial fibrillation COPD (chronic obstructive pulmonary disease) Post-polio syndrome SVT (supraventricular tachycardia) DDD (degenerative disc disease) Vitamin D deficiency Surgical History History of shoulder surgery Left shoulder History of hip surgery Left hip fusion Family History Father Heart disease Mother Diabetes Brother Cancer Sister Cancer Social History Smoking and tobacco/nicotine status: unknown if used tobacco/nicotine Second hand smoke exposure: No Alcohol intake: never Substance/Drug Use: never Physical Exam 2 Const: COMMON NORMALS: no acute distress, average body habitus, patient oriented x3, no limitations, alert and well nourished Resp: COMMON NORMALS: normal respiratory effort and clear to auscultation bilaterally AUSCULTATION: clear to auscultation bilaterally Cardio: COMMON NORMALS: regular rate and regular rhythm RATE: regular rate RHYTHM: regular rhythm Neuro: LAURI COMA SCALE: document GCS findings [place] coma scale eye opening: Spontaneous [place] coma scale verbal response: Orientated Lauri coma scale motor response: Obey commands [place] coma scale total score: 15 COMMON NORMALS: patient oriented x3, moves all extremities, no focal motor deficits and no sensory deficits noted SENSORIUM/ORIENTATION: Yes alert Skin: COMMON NORMALS: no rashes or lesions noted GENERAL SKIN EXAM: no rashes or lesions noted Course 2 Vital Signs: Vital signs: Vital Signs Temperature 97.5 F L 08/09/24 17:39 Pulse Rate 75 08/09/24 18:30 Respiratory Rate 16 08/09/24 17:39 Blood Pressure 165/74 08/09/24 18:30 Pulse Oximetry 90 08/09/24 18:30 Oxygen Delivery Me thod Room Air 08/09/24 18:30 Oxygen Flow Rate 3 08/09/24 17:39 MDM - General Adult Medical Decision Making Patient has terminal cancer. She has decided she does not want to pursue any form of chemotherapy or targeted therapy. Patient states she wants to go on hospice care. We did contact [facility] who had went to her home earlier today. They stated they could come to patient's home tomorrow morning to finish all of her paperwork to place her on hospice. On today's visit, she was found to be hyponatremic with a sodium of 118. Her UA was grossly contaminated. Her CXR showing retrocardiac effusion versus atelectasis versus infiltrates. Patient was offered admission to the hospital but she declines. She states she wants to go home where she feels comfortable. Family is here with her and would like to honor her wishes and take her home. Medical Records I reviewed the patient's medical records. Lab Data I reviewed the patient's lab results. 08/09/24 18:21 08/09/24 18:21 Radiology Impressions Chest X-Ray 08/09/24 18:56 IMPRESSION: As above. Laboratory Results WBC 10.88 10^3/uL (3.29-11.43) 08/09/24 18:21 RBC 4.92 10^6/uL (3.85-5.65) 08/09/24 18:21 Hgb 14.90 g/dL (11.27-16.99) 08/09/24 18:21 Hct 44.4 % (36-47) 08/09/24 18:21 MCV 90.2 fl (85-98) 08/09/24 18:21 MCH 30.3 pg (27-33) 08/09/24 18:21 MCHC 33.6 g/dL (30-55) 08/09/24 18:21 RDW 13.9 % (12.1-15.1) 08/09/24 18:21 Plt Count 461 10^3/cmm (157-399) H 08/09/24 18:21 MPV 9.0 fL (7.4-10.4) 08/09/24 18:21 Neut % (Auto) 81.2 % 08/09/24 18:21 Lymph % (Auto) 8.3 % 08/09/24 18:21 [place] % (Auto) 9.3 % 08/09/24 18:21 Eos % (Auto) 0.6 % 08/09/24 18:21 Baso % (Auto) 0.2 % 08/09/24 18:21 Neut # (Auto) 8.85 10^3/uL (1.8-7.7) H 08/09/24 18:21 Lymph # (Auto) 0.9 10^3/uL (0.8-4.8) 08/09/24 18:21 [place] # (Auto) 1.0 10^3/uL (0.2-0.9) H 08/09/24 18:21 Eos # (Auto) 0.1 10^3/uL (0.0-0.8) 08/09/24 18:21 Baso # (Auto) 0.0 10^3/uL (0.0-0.1) 08/09/24 18:21 Nucleated RBC % (auto) 0 % 08/09/24 18:21 Nucleated RBCs # 0.0 /100WBC 08/09/24 18:21 Sodium 118 mmol/L (136-145) L* 08/09/24 18:21 Potassium 5.1 mmol/L (3.5-5.1) 08/09/24 18:21 Chloride 82 mmol/L (98-107) L 08/09/24 18:21 Carbon Dioxide 21 mmol/L (22-29) L 08/09/24 18:21 Anion Gap 20.1 (5-19) H 08/09/24 18:21 BUN 22 mg/dL (8-23) 08/09/24 18:21 Creatinine 0.8 mg/dL (0.5-0.9) 08/09/24 18:21 GFR Calculation Not Reportable 08/09/24 18:21 Glucose 108 mg/dL (65-115) 08/09/24 18:21 Calculated Osmolality 250 mOsm/kg (285-295) L 08/09/24 18:21 Calcium 9.1 mg/dL (8.5-10.5) 08/09/24 18:21 Total Bilirubin 0.6 mg/dL (0.15-1.2) 08/09/24 18:21 AST 25 U/L (0-32) 08/09/24 18:21 ALT 10 U/L (0-33) 08/09/24 18:21 Alkaline Phosphatase 90 U/L (35-105) 08/09/24 18:21 Total Protein 7.0 g/dL (6.6-8.7) 08/09/24 18:21 Albumin 3.5 g/dL (3.5-5.2) 08/09/24 18:21 Globulin 3.5 g/dL (1.3-4.6) 08/09/24 18:21 Urine Color Dark yellow (Yellow) A 08/09/24 18:04 Urine Appearance Slightly cloudy (CLEAR) 08/09/24 18:04 Urine pH 5.0 (5-7) 08/09/24 18:04 Ur Specific [place] 1.018 (1.005-1.030) 08/09/24 18:04 Urine Protein Negative (Negative) 08/09/24 18:04 Urine Glucose (UA) Negative (Normal) 08/09/24 18:04 Urine Ketones Trace (Negative) 08/09/24 18: Urine Blood Negative (Negative) 08/09/24 18:04 Urine Nitrate Negative (Negative) 08/09/24 18: Urine Bilirubin Negative (Negative) 08/09/24 18:04 Urine Urobilinogen 1.0 mg/dL (Negative) 08/09/24 18:04 Ur Leukocyte Esterase Trace (Negative) A 08/09/24 18:04 Urine RBC 3-5 /hpf (0-2) 08/09/24 18:04 Urine WBC 6-10 /hpf (0-5) 08/09/24 18:04 Ur Squamous Epith Cells 21-50 /hpf (0-5) 08/09/24 18:04 Amorphous Sediment Not Reportable 08/09/24 18:04 Urine Bacteria 3+ /hpf (NONE) H 08/09/24 18:04 Hyaline Casts 19.02 /lpf 08/09/24 18:04 All radiology interpretation(s) finalized by discharge Discharge Plan Discharge Patient Disposition: Home Clinical Impression: Hyponatremia, Primary peritoneal carcinomatosis Condition: Stable Prescriptions: No Action diltiazem HCl 180 mg capsule,extended release 24hr PO levothyroxine 50 mcg tablet 50 mcg PO DAILY Qty: 30 2RF apixaban 5 mg tablet 5 mg PO BID 90 Days Qty: 180 0RF furosemide [Lasix] 20 mg tablet 20 mg PO DAILY Qty: 3 0RF cetirizine [Zyrtec] 10 mg Tablet 10 mg PO DAILY acetaminophen 500 mg Tablet 1,000 mg PO Q6H PRN (Reason: Pain) citalopram 20 mg tablet 20 mg PO DAILY Vitamin C 1,000 mg Capsule, Extended Release 1,000 cap PO DAILY Women's 50 Plus Multivitamin 400 mcg-500 mg calcium-20 mcg Tablet 1 tab PO DAILY hydrocodone-acetaminophen 5-325 mg tablet 1 tab PO Q6H PRN (Reason: pain) Qty: 14 0RF Discharge Orders: Discharge ED (Routine); Ordered 08/09/24 Ordered By: Crystal Mustafa Referrals: Ernestina Nicholson NP [Primary Care Provider] - Activity Restrictions/Additional Instructions: As we discussed, you are offered admission to the hospital at this time but have decided to go home and continue plan for hospice care. Hospice is planning on meeting with you in the morning. 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
[2024-08-09 18:17] LABS: Bacteria Urine 3+ /hpf; Hyaline Casts Urine 19.02 /lpf; Squamous Epithelial Cell Urine 21-50 /hpf (0-5)
[2024-08-09 18:20] LABS: Add Urine Microscopic? YES; Bilirubin Urine Negative (Negative); Blood Urine Negative (Negative); Glucose Urine UA Negative (Normal); Ketones Urine Trace (Negative); Leukocyte Esterase Urine Trace (Negative); Nitrate Urine Negative (Negative); Protein Urine Negative (Negative); Specific Gravity, Urine 1.018 (1.005-1.030); Urine Appearance Slightly Cloudy (CLEAR); Urine Color Dark Yellow (Yellow)
[2024-08-09 18:21] LABS: Add Urine Culture? No
[2024-08-09] MEDS: sodium chloride 0.9% 1,000 ML 999 ML IV (18:25)
[2024-08-09] MEDS: LORazepam 2 mg/mL INJ 1 mL 0.5 MG IVP (18:27)
[2024-08-09 18:30] VITALS: BP 165/74; PULSE 75; O2SAT 90
[2024-08-09 18:33] LABS: Basophils % 0.2 %; Eosinophils # 0.1 10^3/uL (0.0-0.8); Eosinophils % 0.6 %; Hematocrit 44.4 % (36-47); Lymphocytes # 0.9 10^3/uL (0.8-4.8); Lymphocytes % 8.3 %; Mean Corpuscular HGB Conc 33.6 g/dL (30-55); Mean Corpuscular Hemoglobin 30.3 pg (27-33); Mean Corpuscular Volume 90.2 fl (85-98); Monocytes % 9.3 %; Neutrophils # 8.85 10^3/uL (1.8-7.7); Neutrophils % 81.2 %; Nucleated Red Blood Cells % 0 %; Platelet Count 461 10^3/cmm (157-399); Red Blood Count 4.92 10^6/uL (3.85-5.65); Red Cell Distribution Width 13.9 % (12.1-15.1); White Blood Count 10.88 10^3/uL (3.29-11.43)
[2024-08-09 18:50] LABS: Alanine Aminotransferase 10 U/L (0-33); Albumin Level 3.5 g/dL (3.5-5.2); Alkaline Phosphatase 90 U/L (35-105); Blood Urea Nitrogen 22 mg/dL (8-23); Calcium 9.1 mg/dL (8.5-10.5); Carbon Dioxide 21 mmol/L (22-29); Chloride 82 mmol/L (98-107); Creatinine Clr Calc Pharmacy 60.5307; Globulin 3.5 g/dL (1.3-4.6); Glucose 108 mg/dL (65-115); Osmolality Calculated 250 mOsm/kg (285-295); Total Bilirubin 0.6 mg/dL (0.15-1.2)
--- NOTE | 2024-08-09 18:56 | XRR_ITS ---
PROCEDURE INFORMATION: Exam: XR Chest Exam date and time: 08/09/2024 7:01 PM Age: 84 years old Clinical indication: Shortness of breath; Additional info: Hypoxia TECHNIQUE: Imaging protocol: Radiologic exam of the chest. Views: 1 view. COMPARISON: CR XR chest 1V portable [id number] 04/30/2024 12:50 PM FINDINGS: Lungs: Mild central pulmonary vasculature congestive changes. Retrocardiac opacities reflecting pleural effusions versus adjacent atelectasis or infiltrates. Pleural spaces: No right-sided pleural effusion or pneumothorax. Heart/Mediastinum: Cardiomegaly. Bones/joints: Unremarkable. XR/XR chest 1V portable [id number] IMPRESSION: As above.
[2024-08-09 19:01] LABS: Anion Gap 20.1 (5-19); Aspartate Amino Transferase 25 U/L (0-32); Potassium 5.1 mmol/L (3.5-5.1)
[2024-08-09 19:02] LABS: Sodium 118 mmol/L (136-145)
[2024-08-09 20:00] VITALS: BP 162/81
[2024-08-09 21:07] VITALS: BP 158/85; PULSE 84; RESP 18; O2SAT 93
== END 2024-08-09 20:35 | disposition home or self-care (01) ==
PROVIDERS: Emergency Provider Physician Assistant; PCP Nurse Practitioner Family
DX: E87.1 Hypo-osmolality and hyponatremia (principal); C78.6 Secondary malignant neoplasm of retroperitoneum and peritoneum; J44.9 Chronic obstructive pulmonary disease, unspecified
CPT/HCPCS: 71045; 80053; 81001; 85025; 96374; 99284; J2060; J7030